=== PATIENT | male | born 1950 | race Caucasian/White ===

== ENCOUNTER 2018-06-12 22:22 | Inpatient (IN) ==
[2018-06-12] MEDS ORDERED: ASPIRIN 81 MG CHEW ONE (22:41)
[2018-06-12] MEDS: NITROGLYCERIN 2% OINTMENT 30GM TUBE ONE ×2 (22:43→22:44)
[2018-06-12] MEDS ORDERED: ASPIRIN 81 MG CHEW PO STA (22:48)
[2018-06-12] MEDS ORDERED: NITROGLYCERIN 2% OINTMENT 30GM TUBE EXT STA (22:49)
[2018-06-12] MEDS ORDERED: HEPARIN (PORCINE) 1000 UNIT/ML 10 ML (CATH LAB USE ONLY) ONE (22:56)
[2018-06-12] MEDS ORDERED: NITROGLYCERIN/D5W 100MCG/ML 20ML SYR ONE (22:56)
[2018-06-12] MEDS ORDERED: NiCARDipine HCL INJ 2.5 MG/ML 10 ML AMP ONE (22:56)
[2018-06-12] MEDS ORDERED: fentaNYL citrate 100 MCG/2 ML VIAL ONE (22:57)
[2018-06-12] MEDS ORDERED: MIDAZOLAM HCL 1 MG/ML 2ML VIAL ONE (22:57)
[2018-06-12 23:06] LABS: Basophils # (auto) 0.02 K/uL (0-0.2); Basophils % (auto) 0.2 %; Eosinophils # (auto) 0.03 K/uL (0-0.5); Eosinophils % (auto) 0.3 %; Hematocrit (blood only) 43.3 % (42-52); Hemoglobin 15.6 g/dL (14.0-18.0); Immature Granulocytes % (auto) 0.9 %; Lymphocytes # (auto) 2.99 K/uL (1.2-3.4); Lymphocytes % (auto) 26.9 %; Mean Corpuscular Volume 84.4 fL (80-100); Mean Platelet Volume 10.1 fL (7.4-10.4); Monocytes # (auto) 0.81 K/uL (0.11-0.59); Monocytes % (auto) 7.3 %; Neutrophils # (auto) 7.15 K/uL (1.4-6.5); Neutrophils % (auto) 64.4 %; Platelet Count 307 K/uL (130-400); RDW Coefficient of Variation 13.2 % (11.5-14.5); RDW Standard Deviation 40.2 fL (36.4-46.3); Red Blood Count 5.13 M/uL (4.7-6.1)
[2018-06-12] MEDS ORDERED: TICAGRELOR 90 MG TAB PO ONE (23:09)
--- NOTE | 2018-06-12 23:10 | Pre Anesthesia Assessment ---
Date of Service June 12, 2018 Pre Sedation Assessment Vital Signs Temp Pulse Pulse Resp BP BP Pulse Ox 06/12/18 23:02 104 H 18 180/113 H 96 06/12/18 22:56 97 06/12/18 22:54 103 H 20 183/115 H 96 06/12/18 22:44 37.3 C 122 H 18 214/131 H 97 Cardiovascular RRR, no murmur, no edema Respiratory normal respiratory effort, lungs clear to auscultation Pre-Sedation Airway Assessment Smoking Status: Former smoker Hx Sleep Apnea: No Hx Difficult Intubation: No Short, Thick Neck: No Thyromental Distance: > or= 3.5 Finger Breadths Oral Cavity: + WNL Mallampati Class: III Procedure Planning Contraindications for Sedation: none Current Medications Reviewed: Yes Notes The planned sedation has been discussed with the patient. Informed Consent was obtained. I have identified the patient, determined the appropriateness of sedation and have assessed the patient immediately prior to the procedure. All medicine(s) and interventions are by my order.
[2018-06-12] MEDS ORDERED: ICU PROTOCOL FOR HYPERGLYCEMIA PRN (23:13)
[2018-06-12 23:17] LABS: Albumin Level 3.8 gm/dl (3.4-5.0); BUN Creatinine Ratio 21.4 (10-20); Calcium 9.1 mg/dl (8.5-10.1); Creatinine Clr Calc Pharmacy 77.7 ml/min; Est GFR (African American) 76.4; Est GFR (Non-African American) 65.9; Potassium 3.7 mmol/L (3.5-5.1)
[2018-06-12 23:19] LABS: INR 1.1 (0.9-1.1); Partial Thromboplastin Ratio 0.9; Partial Thromboplastin Time 23.1 Seconds (21.0-31.0); Prothrombin Time 11.1 Seconds (9.0-12.0)
[2018-06-12 23:28] LABS: Bilirubin,Total 0.3 mg/dl (0.2-1); Globulin 3.7 gm/dl (2.5-4.0); Total Protein 7.5 gm/dl (6.4-8.2); Troponin I 0.919 ng/ml (0-0.045)
--- NOTE | 2018-06-13 00:14 | Post Anesthesia Assessment ---
Date of Service June 13, 2018 Post Sedation Assessment Vital Signs Temp Pulse Pulse Resp BP BP Pulse Ox 06/12/18 23:02 104 H 18 180/113 H 96 06/12/18 22:56 97 06/12/18 22:54 103 H 20 183/115 H 96 06/12/18 22:44 37.3 C 122 H 18 214/131 H 97 Recovery Score Activity: Moves 4 extremities Respiration: Deep Breath/Cough Circulation: +/-20% PreAnes Value Consciousness: Fully Awake Oxygen Saturation: O2 needed for >90% Discharge Sedation Level of Care: Fast Track Phase II Post Sedation Plan On clinical assessment, the patient appears to have tolerated the sedation without complications. Patient is recovering as anticipated. Patient will continue to be monitored by nursing and may be discharged when sedation discharge criteria are met per below protocol. Upon Completions of procedure and additional 15 minutes continue every 5 minute vital signs and the P.A.R. score; then discharge to a Phase I or Fast Track to Phase II per the following guidelines: * Discharge Patient to appropriate Phase II area if PAR is 8 or greater or return to pre- procedure baseline. The post - procedure orders will be as directed. * If PAR score is less than 8 or not return to pre-procedure baseline then patient will follow Phase I monitoring till PAR is reached for Phase II. The Phase I may be done in procedure room or may call to secure a Phase I area. * If naloxone or flumazenil are used for reversal, hold in Phase I for continued monitoring from when last reversal dose was given for a minimum of 60 minutes or longer pending the nurse and/or physician discretion of patient condition before discharge to Phase II. Please call the Sedation Physician to re-evaluate and complete post-note for discharge to Phase II area. Do NOT discharge from procedure sedation or Phase 1 until post- sedation evaluation note is complete by procedure /sedation MD Sedation Discharge Instructions to be given to the patient at discharge to home.
--- NOTE | 2018-06-13 00:14 | Cardiology Consultation ---
Date of Consultation June 12, 2018 Assessment & Plan (1) ACS (acute coronary syndrome): 2. Hypertension 3. Dyslipidemia Presentation with typical chest pain and anterior ST elevations on EKG. Now chest pain-free but in the setting of initial EKG findings recommend proceeding with emergent cardiac catheterization and likely primary PCI. No apparent contraindications to procedure. Discussed risks, benefits, alternatives of procedure with patient and they are willing to proceed. 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 Further recommendations pending findings of coronary angiography. History of Present Illness History of Present Illness Mr. Wade is a 67-year-old man here with acute chest pain and ECG concerning for acute OH. Patient seen emergently in the ED after heart alert activated upon arrival. No prior cardiac history. Cardiac risk factors include hypertension, dyslipidemia and remote tobacco use for approximately 15 years. No other real significant past medical history Chest pain began approximately 9: 45 PM around 1 hour prior to arrival while getting ready for bed. Describes substernal 5 out of 10 pain. Has been having brief similar episodes over the last several preceding days. Maybe a few brief episodes in April. Has been treated for bronchitis, possible pneumonia. Largely chest pain-free in the ED after sublingual nitroglycerin, nitro patch. Hypertensive to the 190s. EKG showed sinus rhythm with new anterior ST elevations. Family history: No family history of premature coronary artery disease. 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 Lives with . Non-smoker Allergies Allergy/AdvReac Type Severity Reaction Status Date / Time pollen extracts Allergy Intermediate ITCHY Verified 06/12/18 22:42 EYES, SNEEZING, CONGESTION Home Medications Home Medications Medication Instructions Recorded Confirmed Type aspirin [Aspir-81] 81 mg PO DAILY 06/12/18 06/12/18 History cetirizine [Zyrtec] 10 mg PO DAILY PRN 06/12/18 06/12/18 History doxycycline hyclate 100 mg PO DAILY 06/12/18 06/12/18 History hydrochlorothiazide 25 mg PO DAILY 06/12/18 06/12/18 History omega 0-vtx-ybt-fish oil [Fish Oil] 1 cap PO DAILY 06/12/18 06/12/18 History pravastatin 40 mg PO DAILY 06/12/18 06/12/18 History prednisone 10 mg PO DAILY 06/12/18 06/12/18 History Patient History Social History Smoking Status: Former smoker Review of Systems Review of Systems: Not completed in the setting of emergent situation Physical Exam Constitutional: well developed and well nourished Eyes: + anicteric sclerae Respiratory: normal respiratory effort, lungs clear to auscultation Cardiovascular: Rate/Rhythm: regular rate Heart Sounds: no murmur Extremities: no edema 2+ radial pulses bilaterally Gastrointestinal (Abdomen): normal bowel sounds, soft, nontender, no hepatosplenomegaly Skin: no rashes, warm and dry Neurologic: moves all extremities Psychiatric: A+Ox3, euthymic affect Results & Data Vital Signs (Past 12 Hours) Vital Signs Temp Pulse Pulse Resp BP BP Pulse Ox 06/12/18 23:02 104 H 18 180/113 H 96 06/12/18 22:56 97 06/12/18 22:54 103 H 20 183/115 H 96 06/12/18 22:44 37.3 C 122 H 18 214/131 H 97
--- NOTE | 2018-06-13 00:25 | Cardiac Catheterization ---
Cardiac Cath Procedure Full Procedure Date June 13, 2018 Pre-Procedure Diagnosis Pre-Procedure Diagnosis: STEMI AUC Score AUC Score: 9 Post-Procedure Diagnosis Post-Procedure Diagnosis: Severe CAD and Normal Intracardiac Pressures Procedure(s) Performed Procedure(s) Performed: Coronary Angiography, Left Heart Cath and Drug Eluting Stent Second Watch Sergeant Gomez Bahena MD Clearance Coordinator(s) Isauro Estimated Blood Loss Estimated Blood Loss: 15 Medication(s) Medication(s): Fentanyl, Heparin, Lidocaine 1%, Nicardipine, Nitroglycerin and Versed Medication(s): Ticagrelor Summary of Findings Indication: STEMI/Heart Alert Access: 6 Fr right radial artery Catheters: Diagnostic JR4, EBU 3.5 guide Findings: LM -large caliber vessel, no significant disease LAD -large caliber vessel, mild diffuse disease, 90+% hazy focal mid segment disease after takeoff of second diagonal, 30% diffuse latemid to distal disease, large caliber vessel as wraps around apex with CRISTIANA II-III flow. Gives off 3 moderate caliber diagonals with mild disease. Circumflex -50 to 60% ostial stenosis, mid segment luminal irregularities, large OM 2 without significant disease. RCA -dominant, moderate caliber vessel, 50% proximal disease, mild earlymid segment disease, distal luminal irregularities, tortuous PDA without significant disease. LVEDP -1 -- PCI -- Antithrombotic therapy: Heparin, ticagrelor Procedure: Left main cannulated with EBU 3.5 guide BMW wire passed across lesion into distal vessel Mid LAD lesion predilated with 2.5 compliant balloon Dilated lesion stented with 3.0 x 18 mm Al drug-eluting stent Stent post-dilated with 3.5 noncompliant balloon IC vasodilators administered for spasm Post procedure CRISTIANA 3 flow, stent well expanded with minimal residual stenosis and no apparent cardiac complications. Arterial Closure: TR band Summary: 1. Anterior STEMI/90+% acute mid LAD stenosis 2. Moderate to severe 2-vessel non-culprit coronary artery disease -50 to 60% ostial circumflex 50% proximal RCA 3. Normal intracardiac filling pressure 4. Successful PCI of mid LAD with single drug-eluting stent (3.0 x 18 mm Al; postdilated with 3.5 NC). Recommendations: Admit to ICU for continued monitoring Loaded with ticagrelor 180 mg in photonic laboratory technician Continue dual-antiplatelet therapy for at least 1 year. Trend troponins until peak, Check Echo Uptitrate beta-torrey/LEXI as BP allows High-dose statin Consult cardiac Rehab Medically manage non-culprit coronary artery disease. Will consider further ischemic assessment as an outpatient. Hemodynamics Rest Ao:: 115/81/97 Final Ao: 118/72/94 LV: 119/1 Recommendations Recommendations: PCI without planned CABG Specimens Specimens: None Radiation Exposure (mGy) 2436 Contrast (mls) 120 Fluids (cc crystalloids) Fluids (cc crystalloids): 68 Drains Drains: None Anesthesia Moderate Procedural Complication(s) None Disposition ICU ACC Data: Improvement Leader Cardiac Status Clinical evaluation leading to the procedure CAD Presenation: STEMI Anginal Classification: CCS IV Heart Failure: No Cardiogenic Shock within 24 Hours: No Cardiac Arrest within 24 Hours: No Imaging Studies Past 6 Months: No Stress Studies Past 6 Months: No Diagnostic Physicians Name: Gomez Bahena MD Status: Emergency Closure Device Percutaneous Entry Location: Radial Closure Device: Radial Band Recommendations: PCI without planned CABG PCI Indication: Immediate PCI for STEMI Lesion Segment Name: Mid LAD Culprit Artery: Yes Stenosis Prior to Rx (%): 90+% Chronic Total Occlusion: No IVUS: No FFR: No Pre-Procedure CRISTIANA Flow: 2 Previously Treated Lesion: No Lesion Complexity: Non-High/Non-C Lesion Length (mm): 12 Thrombus Present: Yes Bifurcation Lesion: No Guidewire Across Lesion: Stenosis Post-Procedure (%): 0 Post-Procedure CRISTIANA Flow: 3 Devices(s) Deployed: Yes Yes Intraprocedure Events Significant Disection: No Perforation: No
[2018-06-13] MEDS ORDERED: ACETAMINOPHEN 325 MG TAB PO PRN (00:30)
[2018-06-13] MEDS ORDERED: ONDANSETRON INJ 2 MG/ML 2 ML VIAL IV PRN (00:30)
[2018-06-13] MEDS ORDERED: SODIUM CHLORIDE 0.9% 1000ML 1,000 ML IV SCH (00:30)
--- NOTE | 2018-06-13 01:45 | Emergency Department Note ---
Entered by Nena Capps acting as a scribe for History of Present Illness General Chief complaint: Chest Pain Stated complaint: CHEST PAIN Time Seen by Provider: 06/12/18 22:49 Source: patient History of Present Illness Onset (ago): hour(s) 1 Location: chest Radiation: extremity (left) and other (shoulders) Pain Consistency: + other (persistent) Associated symptoms: + other (negative swelling in the legs ); no shortness of breath The patient is a 67 year old male who presents to the Emergency Room with complaints of persistent chest pain that began 1 hour to arrival. The patient states that his pain radiates into his shoulders and down the left arm. The patient states that he had intermittent chest pain over the past 5 days, but states that he recently had bronchitis and pneumonia, and states that he believed his chest pain was from persistent coughing. The patient denies shortness of breath and swelling in his legs. He states that he takes a low dose aspirin daily. The patient states that he is also taking doxycycline and prednisone for his bronchitis and pneumonia. The patient denies heart history, but states that his mother from a heart issue. Home Medications Home Medications Medication Instructions Recorded Confirmed Type aspirin [Aspir-81] 81 mg PO DAILY 06/12/18 06/12/18 History cetirizine [Zyrtec] 10 mg PO DAILY PRN 06/12/18 06/12/18 History doxycycline hyclate 100 mg PO DAILY 06/12/18 06/12/18 History omega [id number]-fish oil [Fish Oil] 1 cap PO DAILY 06/12/18 06/12/18 History atorvastatin 80 mg PO QAM #30 tab 06/14/18 Rx lisinopril [Zestril] 5 mg PO QAM #30 tab 06/14/18 Rx metoprolol tartrate 25 mg PO BID #60 tab 06/14/18 Rx ticagrelor [Brilinta] 90 mg PO BID #60 tab 06/14/18 Rx Allergies Allergy/AdvReac Type Severity Reaction Status Date / Time pollen extracts Allergy Intermediate ITCHY Verified 06/12/18 22:42 EYES, SNEEZING, CONGESTION Past Med/Surg History Medical History No significant past medical history Social History Preferred Language: Maori Communication Ability: Effective Marketing Co Op Required: No Beliefs That Will Affect Care: None Current Living Situation: Alone Other Information That Helps Us Care for You: No Feels Safe at Home: Yes Safety Concerns: Feels Safe At This Time Smoking Status: Former smoker Do You Dip or Chew Tobacco: No Second Hand Exposure: No Tobacco Cessation Education Requested by Patient: No Hx Alcohol Use: No Hx Substance Use: No Review of Systems See HPI for pertinent positives & negatives. and A total of 10 systems reviewed and were otherwise negative Physical Exam Vital Signs Vital Signs - 24 hr 06/12/18 22:44 06/12/18 22:54 06/12/18 22:56 Temperature 37.3 C Temperature Source Oral Sepsis Recent Fever Within 48 Hours No Sepsis Action Taken by Nursing No Action Required Pulse Rate 122 H Pulse Rate [Apical] Pulse Rate [Finger] 103 H Respiratory Rate 18 20 Respiratory Effort / Characteristics Non-Labored Spontaneous Non-Labored Spontaneous Respiratory Depth Normal Normal Respiratory Pattern Regular Blood Pressure 214/131 H Blood Pressure [Left Arm] Blood Pressure [Right Arm] 183/115 H Blood Pressure Mean 158 Blood Pressure Mean [Left Arm] Blood Pressure Mean [Right Arm] 137 Blood Pressure Position Lying Pulse Oximetry 97 96 97 Oxygen Delivery Method Room Air Room Air Room Air 06/12/18 23:02 06/13/18 00:20 06/13/18 00:30 Temperature 36.9 C 36.9 C Temperature Source Oral Oral Sepsis Recent Fever Within 48 Hours Sepsis Action Taken by Nursing Pulse Rate Pulse Rate [Apical] 77 84 Pulse Rate [Finger] 104 H Respiratory Rate 18 18 18 Respiratory Effort / Characteristics Non-Labored Spontaneous Respiratory Depth Normal Respiratory Pattern Blood Pressure Blood Pressure [Left Arm] 126/85 149/92 H Blood Pressure [Right Arm] 180/113 H 126/85 Blood Pressure Mean Blood Pressure Mean [Left Arm] 98 111 Blood Pressure Mean [Right Arm] 135 98 Blood Pressure Position Pulse Oximetry 96 96 97 Oxygen Delivery Method Room Air Room Air Room Air 06/13/18 00:45 06/13/18 01:00 06/13/18 01:15 Temperature Temperature Source Sepsis Recent Fever Within 48 Hours Sepsis Action Taken by Nursing Pulse Rate 79 Pulse Rate [Apical] 78 86 80 Pulse Rate [Finger] Respiratory Rate 17 19 16 Respiratory Effort / Characteristics Respiratory Depth Respiratory Pattern Blood Pressure Blood Pressure [Left Arm] 150/90 H 153/97 H 142/99 H Blood Pressure [Right Arm] Blood Pressure Mean Blood Pressure Mean [Left Arm] 110 115 113 Blood Pressure Mean [Right Arm] Blood Pressure Position Pulse Oximetry 94 95 97 Oxygen Delivery Method Room Air Room Air Room Air 06/13/18 01:30 06/13/18 01:45 06/13/18 02:00 Temperature Temperature Source Sepsis Recent Fever Within 48 Hours Sepsis Action Taken by Nursing Pulse Rate Pulse Rate [Apical] 73 75 72 Pulse Rate [Finger] Respiratory Rate 16 16 15 Respiratory Effort / Characteristics Respiratory Depth Respiratory Pattern Blood Pressure Blood Pressure [Left Arm] 125/91 135/83 127/82 Blood Pressure [Right Arm] Blood Pressure Mean Blood Pressure Mean [Left Arm] 102 100 97 Blood Pressure Mean [Right Arm] Blood Pressure Position Pulse Oximetry 97 96 94 Oxygen Delivery Method Room Air Room Air Room Air Vital signs reviewed. General: Well-appearing male. HEENT: No scleral icterus, PERRLA, neck supple. Atraumatic. Cardiovascular: Tachycardic rate and rhythm, no extra sounds. Hypertensive. Pulmonary: Clear to auscultation bilaterally, normal work of breathing. Abdomen: Soft, nontender, nondistended, positive bowel sounds. Musculoskeletal: Atraumatic, no peripheral edema. Neurologic: Patient awake alert and oriented x 3. Skin: Warm, dry, no rash Course 2233: The patient was evaluated in room A1, and a complete history and physical examination were performed. 2258: Dr. Bahena-Cardiology is at the bedside. 2309: The patient was sent to the catheterization lab. Administered Medications Discontinued Medications Al Hydrox/Mg Hydrox/Simethicone (Maalox Max) 30 ml PO Q6H PRN PRN Reason: Heartburn Stop: 07/13/18 06:19 Last Admin: 06/13/18 06:35 Dose: 30 ml Documented by: [id number] Aspirin (Aspirin Chew) Confirm Administered Dose 243 mg .ROUTE .STK-MED ONE Stop: 06/12/18 22:42 Last Admin: 06/12/18 22:44 Dose: 243 mg Documented by: [id number] Aspirin (Aspirin Chew) 243 mg PO NOW STA Stop: 06/12/18 22:49 Last Admin: 06/12/18 22:52 Dose: Not Given Documented by: [id number] Aspirin (Ecotrin Ectab) [facility] [place] 07/13/18 08:59 Last Admin: 06/14/18 07:59 Dose: 81 mg Documented by: [id number] Admin: 06/13/18 08:39 Dose: 81 mg Documented by: [id number] Atorvastatin Calcium (Lipitor) 80 mg PO QAM [facility] Stop: 07/13/18 08:59 Last Admin: 06/14/18 07:59 Dose: 80 mg Documented by: [id number] Admin: 06/13/18 08:38 Dose: 80 mg Documented by: [id number] Doxycycline Hyclate (Vibramycin) 100 mg PO DAILY MANDY Stop: 07/13/18 08:59 Last Admin: 06/13/18 09:35 Dose: 100 mg Documented by: [id number] Fentanyl Citrate (Fentanyl Citrate) Confirm Administered Dose 100 mcg .ROUTE .STK-MED ONE Stop: 06/12/18 22:58 Last Admin: 06/13/18 00:38 Dose: Not Given Documented by: [id number] Fish Oil (Buford-3 (Purified Fish Oil)) 1 gm PO DAILY MANDY Stop: 07/14/18 08:59 Last Admin: 06/14/18 07:59 Dose: 1 gm Documented by: [id number] Heparin Sodium (Porcine) (Heparin Iv Bolus (Senior H[employer] Developer Use Only)) Confirm Administered Dose 10,000 units .ROUTE .STK-MED ONE Stop: 06/12/18 22:57 Last Admin: 06/13/18 00:38 Dose: Not Given Documented by: [id number] Sodium Chloride (Nss 1000ml) 1,000 mls @ 100 mls/hr IV .Q10H MANDY Stop: 06/13/18 05:29 Last Infusion: 06/13/18 06:34 Dose: 0 mls/hr Documented by: [id number] Admin: 06/13/18 01:34 Dose: 100 mls/hr Documented by: [id number] Ceftriaxone Sodium 2,000 mg/ (Dextrose) 70 mls @ 140 mls/hr IV NOW STA Stop: 06/13/18 11:29 Last Infusion: 06/13/18 12:08 Dose: 0 mls/hr Documented by: [id number] Admin: 06/13/18 11:25 Dose: 140 mls/hr Documented by: [id number] Lisinopril (Zestril) 5 mg PO QAM [facility] Stop: 07/13/18 08:59 Last Admin: 06/14/18 08:00 Dose: 5 mg Documented by: [id number] Admin: 06/13/18 08:39 Dose: 5 mg Documented by: [id number] Metoprolol Tartrate (Lopressor) 25 mg PO BID MANDY Stop: 07/13/18 08:59 Last Admin: 06/14/18 07:59 Dose: 25 mg Documented by: [id number] Admin: 06/13/18 20:28 Dose: 25 mg Documented by: [id number] Admin: 06/13/18 08:38 Dose: 25 mg Documented by: [id number] Midazolam HCl (Versed) Confirm Administered Dose 2 mg .ROUTE .STK-MED ONE Stop: 06/12/18 22:58 Last Admin: 06/13/18 00:38 Dose: Not Given Documented by: [id number] Nicardipine HCl (Cardene) Confirm Administered Dose 25 mg .ROUTE .STK-MED ONE Stop: 06/12/18 22:57 Last Admin: 06/13/18 00:37 Dose: Not Given Documented by: [id number] Nitroglycerin (Nitro-Bid 2%) Confirm Administered Dose 18 inch .ROUTE .STK-MED ONE Stop: 06/12/18 22:42 Last Admin: 06/12/18 22:44 Dose: 1 inch Documented by: [id number] Nitroglycerin (Nitro-Bid 2%) 1 inch EXT NOW STA Stop: 06/12/18 22:50 Last Admin: 06/12/18 22:52 Dose: Not Given Documented by: [id number] Nitroglycerin/Dextrose (Nitroglycerin/D5w 100 Mcg/Ml 20ml Syringe) Confirm Administered Dose 2,000 mcg .ROUTE .STK-MED ONE Stop: 06/12/18 22:57 Last Admin: 06/13/18 00:38 Dose: Not Given Documented by: [id number] Sodium Chloride ([place] Nasal) Confirm Administered Dose 225 sprays .ROUTE .STK- MED ONE Stop: 06/14/18 01:02 Last Admin: 06/14/18 02:06 Dose: Not Given Documented by: [id number] Sodium Chloride ([place] Nasal) 1 sprays NA PRN PRN PRN Reason: Dryness Stop: 07/14/18 01:15 Last Admin: 06/14/18 01:05 Dose: 1 sprays Documented by: [id number] Ticagrelor (Brilinta) Confirm Administered Dose 180 mg PO .STK-MED ONE Stop: 06/12/18 23:10 Last Admin: 06/13/18 00:38 Dose: Not Given Documented by: [id number] Ticagrelor (Brilinta) 90 mg PO BID MANDY Stop: 07/13/18 20:59 Last Admin: 06/14/18 07:59 Dose: 90 mg Documented by: [id number] Admin: 06/13/18 20:28 Dose: 90 mg Documented by: [id number] Medical Decision Making Differential Diagnosis Differential diagnosis: Etiologies such as cardiac ischemia, aortic dissection, pulmonary embolism, pneumonia, pneumothorax, musculoskeletal, infections, pericarditis, myocarditis, esophageal rupture, gastrointestinal, as well as others were entertained. Medical Records Attestation: I reviewed the patient's medical records. Home Medications Current Medication List: was personally reviewed by me Laboratory Data Attestation: I reviewed the patient's lab results. Result diagrams: 06/14/18 06:24 06/14/18 06:24 Lab Results 06/12/18 06/12/18 06/12/18 Range/Units 22:35 22:35 22:35 WBC 11.10 H (4.8-10.8) K/uL RBC 5.13 (4.7-6.1) M/uL Hgb 15.6 (14.0-18.0) g/dL Hct 43.3 (42-52) % MCV 84.4 (80-100) fL MCH 30.4 (25-34) pg MCHC 36.0 (32-36) g/dL RDW Std Deviation 40.2 (36.4-46.3) fL RDW Coeff of Augusto 13.2 (11.5-14.5) % Plt Count 307 (130-400) K/uL MPV 10.1 (7.4-10.4) fL Immature Gran % (Auto) 0.9 % Neut % (Auto) 64.4 % Lymph % (Auto) 26.9 % Tw[place]gs % (Auto) 7.3 % Eos % (Auto) 0.3 % Baso % (Auto) 0.2 % Immature Gran # (Auto) 0.10 H (0.00-0.02) K/uL Neut # (Auto) 7.15 H (1.4-6.5) K/uL Lymph # (Auto) 2.99 (1.2-3.4) K/uL Tw[place]gs # (Auto) 0.81 H (0.11-0.59) K/uL Eos # (Auto) 0.03 (0-0.5) K/uL Baso # (Auto) 0.02 (0-0.2) K/uL PT 11.1 (9.0-12.0) Seconds INR 1.1 (0.9-1.1) APTT 23.1 (21.0-31.0) Seconds PTT Ratio 0.9 Activ Coag Time Kaolin (94-140) SECONDS Sodium 136 (136-145) mmol/L Potassium 3.7 (3.5-5.1) mmol/L Chloride 102 (98-107) mmol/L Carbon Dioxide 26 (21-32) mmol/L Anion Gap 8.0 (3-11) BUN 25 H (7-18) mg/dl Creatinine 1.15 (0.6-1.4) mg/dl Est Cr Clr Drug Dosing 77.7 ml/min Est GFR ( Amer) 76.4 Est GFR (Non-Af Amer) 65.9 BUN/Creatinine Ratio 21.4 H (10-20) Glucose 230 H (70-99) mg/dl POC Glucose (70-99) Estimat Average Glucose mg/dl Hemoglobin A1c (4.5-5.6) % Calcium 9.1 (8.5-10.1) mg/dl Total Bilirubin 0.3 (0.2-1) mg/dl AST 43 H (15-37) U/L ALT 45 (12-78) U/L Alkaline Phosphatase 95 (45-117) U/L POC Troponin I (0-0.045) ng/ml Troponin I 0.919 H* (0-0.045) ng/ml Total Protein 7.5 (6.4-8.2) gm/dl Albumin 3.8 (3.4-5.0) gm/dl Globulin 3.7 (2.5-4.0) gm/dl Albumin/Globulin Ratio 1.0 (0.9-2) Triglycerides (0-150) mg/dl Cholesterol (0-200) mg/dl LDL Cholesterol, Calc mg/dl VLDL Cholesterol, Calc mg/dl HDL Cholesterol mg/dl Cholesterol/HDL Ratio Lipase 123 (73-393) U/L Nasal Screen MRSA (PCR) (Negative) Hepatitis C Ab Screen (Neg) 06/12/18 06/12/18 06/13/18 Range/Units 22:40 22:43 00:24 WBC (4.8-10.8) K/uL RBC (4.7-6.1) M/uL Hgb (14.0-18.0) g/dL Hct (42-52) % MCV (80-100) fL MCH (25-34) pg MCHC (32-36) g/dL RDW Std Deviation (36.4-46.3) fL RDW Coeff of Augusto (11.5-14.5) % Plt Count (130-400) K/uL MPV (7.4-10.4) fL Immature Gran % (Auto) % Neut % (Auto) % Lymph % (Auto) % Twiggs % (Auto) % Eos % (Auto) % Baso % (Auto) % Immature Gran # (Auto) (0.00-0.02) K/uL Neut # (Auto) (1.4-6.5) K/uL Lymph # (Auto) (1.2-3.4) K/uL Tw[place]gs # (Auto) (0.11-0.59) K/uL Eos # (Auto) (0-0.5) K/uL Baso # (Auto) (0-0.2) K/uL PT (9.0-12.0) Seconds INR (0.9-1.1) APTT (21.0-31.0) Seconds PTT Ratio Activ Coag Time Kaolin 213 H (94-140) SECONDS Sodium (136-145) mmol/L Potassium (3.5-5.1) mmol/L Chloride (98-107) mmol/L Carbon Dioxide (21-32) mmol/L Anion Gap (3-11) BUN (7-18) mg/dl Creatinine (0.6-1.4) mg/dl Est Cr Clr Drug Dosing ml/min Est GFR ( Amer) Est GFR (Non-Af Amer) BUN/Creatinine Ratio (10-20) Glucose (70-99) mg/dl POC Glucose (70-99) Estimat Average Glucose mg/dl Hemoglobin A1c (4.5-5.6) % Calcium (8.5-10.1) mg/dl Total Bilirubin (0.2-1) mg/dl AST (15-37) U/L ALT (12-78) U/L Alkaline Phosphatase (45-117) U/L POC Troponin I 0.47 H (0-0.045) ng/ml Troponin I (0-0.045) ng/ml Total Protein (6.4-8.2) gm/dl Albumin (3.4-5.0) gm/dl Globulin (2.5-4.0) gm/dl Albumin/Globulin Ratio (0.9-2) Triglycerides (0-150) mg/dl Cholesterol (0-200) mg/dl LDL Cholesterol, Calc mg/dl VLDL Cholesterol, Calc mg/dl HDL Cholesterol mg/dl Cholesterol/HDL Ratio Lipase (73-393) U/L Nasal Screen MRSA (PCR) Negative (Negative) Hepatitis C Ab Screen (Neg) 06/13/18 06/13/18 06/13/18 Range/Units 05:57 06:00 06:00 WBC 12.92 H (4.8-10.8) K/uL RBC 4.63 L (4.7-6.1) M/uL Hgb 14.0 (14.0-18.0) g/dL Hct 38.8 L (42-52) % MCV 83.8 (80-100) fL MCH 30.2 (25-34) pg MCHC 36.1 H (32-36) g/dL RDW Std Deviation 40.1 (36.4-46.3) fL RDW Coeff of Augusto 13.4 (11.5-14.5) % Plt Count 262 (130-400) K/uL MPV 9.8 (7.4-10.4) fL Immature Gran % (Auto) 0.9 % Neut % (Auto) 61.4 % Lymph % (Auto) 25.8 % Twiggs % (Auto) 10.6 % Eos % (Auto) 1.1 % Baso % (Auto) 0.2 % Immature Gran # (Auto) 0.11 H (0.00-0.02) K/uL Neut # (Auto) 7.95 H (1.4-6.5) K/uL Lymph # (Auto) 3.33 (1.2-3.4) K/uL Tw[place]gs # (Auto) 1.37 H (0.11-0.59) K/uL Eos # (Auto) 0.14 (0-0.5) K/uL Baso # (Auto) 0.02 (0-0.2) K/uL PT (9.0-12.0) Seconds INR (0.9-1.1) APTT (21.0-31.0) Seconds PTT Ratio Activ Coag Time Kaolin (94-140) SECONDS Sodium (136-145) mmol/L Potassium (3.5-5.1) mmol/L Chloride (98-107) mmol/L Carbon Dioxide (21-32) mmol/L Anion Gap (3-11) BUN (7-18) mg/dl Creatinine (0.6-1.4) mg/dl Est Cr Clr Drug Dosing ml/min Est GFR ( Amer) Est GFR (Non-Af Amer) BUN/Creatinine Ratio (10-20) Glucose (70-99) mg/dl POC Glucose (70-99) Estimat Average Glucose 143 mg/dl Hemoglobin A1c 6.6 H (4.5-5.6) % Calcium (8.5-10.1) mg/dl Total Bilirubin (0.2-1) mg/dl AST (15-37) U/L ALT (12-78) U/L Alkaline Phosphatase (45-117) U/L POC Troponin I (0-0.045) ng/ml Troponin I 97.900 H* (0-0.045) ng/ml Total Protein (6.4-8.2) gm/dl Albumin (3.4-5.0) gm/dl Globulin (2.5-4.0) gm/dl Albumin/Globulin Ratio (0.9-2) Triglycerides 301 H (0-150) mg/dl Cholesterol 145 (0-200) mg/dl LDL Cholesterol, Calc 48 mg/dl VLDL Cholesterol, Calc 60 mg/dl HDL Cholesterol 37 mg/dl Cholesterol/HDL Ratio 4 Lipase (73-393) U/L Nasal Screen MRSA (PCR) (Negative) Hepatitis C Ab Screen (Neg) 06/13/18 06/13/18 06/13/18 Range/Units 06:00 06:14 12:17 WBC (4.8-10.8) K/uL RBC (4.7-6.1) M/uL Hgb (14.0-18.0) g/dL Hct (42-52) % MCV (80-100) fL MCH (25-34) pg MCHC (32-36) g/dL RDW Std Deviation (36.4-46.3) fL RDW Coeff of Augusto (11.5-14.5) % Plt Count (130-400) K/uL MPV (7.4-10.4) fL Immature Gran % (Auto) % Neut % (Auto) % Lymph % (Auto) % [place] % (Auto) % Eos % (Auto) % Baso % (Auto) % Immature Gran # (Auto) (0.00-0.02) K/uL Neut # (Auto) (1.4-6.5) K/uL Lymph # (Auto) (1.2-3.4) K/uL Tw[place]gs # (Auto) (0.11-0.59) K/uL Eos # (Auto) (0-0.5) K/uL Baso # (Auto) (0-0.2) K/uL PT (9.0-12.0) Seconds INR (0.9-1.1) APTT (21.0-31.0) Seconds PTT Ratio Activ Coag Time Kaolin (94-140) SECONDS Sodium (136-145) mmol/L Potassium (3.5-5.1) mmol/L Chloride (98-107) mmol/L Carbon Dioxide (21-32) mmol/L Anion Gap (3-11) BUN (7-18) mg/dl Creatinine (0.6-1.4) mg/dl Est Cr Clr Drug Dosing ml/min Est GFR ( Amer) Est GFR (Non-Af Amer) BUN/Creatinine Ratio (10-20) Glucose (70-99) mg/dl POC Glucose 114 H (70-99) Estimat Average Glucose mg/dl Hemoglobin A1c (4.5-5.6) % Calcium (8.5-10.1) mg/dl Total Bilirubin (0.2-1) mg/dl AST (15-37) U/L ALT (12-78) U/L Alkaline Phosphatase (45-117) U/L POC Troponin I (0-0.045) ng/ml Troponin I 64.300 H* (0-0.045) ng/ml Total Protein (6.4-8.2) gm/dl Albumin (3.4-5.0) gm/dl Globulin (2.5-4.0) gm/dl Albumin/Globulin Ratio (0.9-2) Triglycerides (0-150) mg/dl Cholesterol (0-200) mg/dl LDL Cholesterol, Calc mg/dl VLDL Cholesterol, Calc mg/dl HDL Cholesterol mg/dl Cholesterol/HDL Ratio Lipase (73-393) U/L Nasal Screen MRSA (PCR) (Negative) Hepatitis C Ab Screen Neg (Neg) 06/13/18 06/13/18 06/14/18 Range/Units 15:56 21:45 06:24 WBC 10.14 (4.8-10.8) K/uL RBC 4.83 (4.7-6.1) M/uL Hgb 14.5 (14.0-18.0) g/dL Hct 41.3 L (42-52) % MCV 85.5 (80-100) fL MCH 30.0 (25-34) pg MCHC 35.1 (32-36) g/dL RDW Std Deviation 42.3 (36.4-46.3) fL RDW Coeff of Augusto 13.7 (11.5-14.5) % Plt Count 248 (130-400) K/uL MPV 9.9 (7.4-10.4) fL Immature Gran % (Auto) % Neut % (Auto) % Lymph % (Auto) % [place]gs % (Auto) % Eos % (Auto) % Baso % (Auto) % Immature Gran # (Auto) (0.00-0.02) K/uL Neut # (Auto) (1.4-6.5) K/uL Lymph # (Auto) (1.2-3.4) K/uL [place]gs # (Auto) (0.11-0.59) K/uL Eos # (Auto) (0-0.5) K/uL Baso # (Auto) (0-0.2) K/uL PT (9.0-12.0) Seconds INR (0.9-1.1) APTT (21.0-31.0) Seconds PTT Ratio Activ Coag Time Kaolin (94-140) SECONDS Sodium (136-145) mmol/L Potassium (3.5-5.1) mmol/L Chloride (98-107) mmol/L Carbon Dioxide (21-32) mmol/L Anion Gap (3-11) BUN (7-18) mg/dl Creatinine (0.6-1.4) mg/dl Est Cr Clr Drug Dosing ml/min Est GFR ( Amer) Est GFR (Non-Af Amer) BUN/Creatinine Ratio (10-20) Glucose (70-99) mg/dl POC Glucose (70-99) Estimat Average Glucose mg/dl Hemoglobin A1c (4.5-5.6) % Calcium (8.5-10.1) mg/dl Total Bilirubin (0.2-1) mg/dl AST (15-37) U/L ALT (12-78) U/L Alkaline Phosphatase (45-117) U/L POC Troponin I (0-0.045) ng/ml Troponin I 49.600 H* 36.000 H* (0-0.045) ng/ml Total Protein (6.4-8.2) gm/dl Albumin (3.4-5.0) gm/dl Globulin (2.5-4.0) gm/dl Albumin/Globulin Ratio (0.9-2) Triglycerides (0-150) mg/dl Cholesterol (0-200) mg/dl LDL Cholesterol, Calc mg/dl VLDL Cholesterol, Calc mg/dl HDL Cholesterol mg/dl Cholesterol/HDL Ratio Lipase (73-393) U/L Nasal Screen MRSA (PCR) (Negative) Hepatitis C Ab Screen (Neg) 06/14/18 Range/Units 06:24 WBC (4.8-10.8) K/uL RBC (4.7-6.1) M/uL Hgb (14.0-18.0) g/dL Hct (42-52) % MCV (80-100) fL MCH (25-34) pg MCHC (32-36) g/dL RDW Std Deviation (36.4-46.3) fL RDW Coeff of Augusto (11.5-14.5) % Plt Count (130-400) K/uL MPV (7.4-10.4) fL Immature Gran % (Auto) % Neut % (Auto) % Lymph % (Auto) % [place] % (Auto) % Eos % (Auto) % Baso % (Auto) % Immature Gran # (Auto) (0.00-0.02) K/uL Neut # (Auto) (1.4-6.5) K/uL Lymph # (Auto) (1.2-3.4) K/uL [place]gs # (Auto) (0.11-0.59) K/uL Eos # (Auto) (0-0.5) K/uL Baso # (Auto) (0-0.2) K/uL PT (9.0-12.0) Seconds INR (0.9-1.1) APTT (21.0-31.0) Seconds PTT Ratio Activ Coag Time Kaolin (94-140) SECONDS Sodium 138 (136-145) mmol/L Potassium 4.1 (3.5-5.1) mmol/L Chloride 108 H (98-107) mmol/L Carbon Dioxide 25 (21-32) mmol/L Anion Gap 5.0 (3-11) BUN 18 (7-18) mg/dl Creatinine 0.82 D (0.6-1.4) mg/dl Est Cr Clr Drug Dosing 100.1 ml/min Est GFR ( Amer) 106.8 Est GFR (Non-Af Amer) 92.1 BUN/Creatinine Ratio 21.9 H (10-20) Glucose 99 (70-99) mg/dl POC Glucose (70-99) Estimat Average Glucose mg/dl Hemoglobin A1c (4.5-5.6) % Calcium 8.7 (8.5-10.1) mg/dl Total Bilirubin (0.2-1) mg/dl AST (15-37) U/L ALT (12-78) U/L Alkaline Phosphatase (45-117) U/L POC Troponin I (0-0.045) ng/ml Troponin I (0-0.045) ng/ml Total Protein (6.4-8.2) gm/dl Albumin (3.4-5.0) gm/dl Globulin (2.5-4.0) gm/dl Albumin/Globulin Ratio (0.9-2) Triglycerides (0-150) mg/dl Cholesterol (0-200) mg/dl LDL Cholesterol, Calc mg/dl VLDL Cholesterol, Calc mg/dl HDL Cholesterol mg/dl Cholesterol/HDL Ratio Lipase (73-393) U/L Nasal Screen MRSA (PCR) (Negative) Hepatitis C Ab Screen (Neg) Imaging Data Attestation: I personally reviewed and interpreted this imaging study as follows: My Impression: CHEST X-RAY: Pulmonary vascular congestion. Normal mediastinum. No pleural effusion. ECG Data Attestation: I personally reviewed and interpreted this ECG as follows: Indication: chest pain Rate (beats per minute): 95 Rhythm: normal sinus Findings: + other (left atrial enlargement; low voltage QRS) and + ST elevation (Anterior); no ectopy Additional Comments: Repeat: Sinus tachycardia with a rate of 106. Worsening ST elevation in the anterior leads. No ectopy. QTC 438. STEMI. Blood Pressure Blood Pressure Findings: Normal blood pressure MDM Narrative This patient was evaluated and appeared to be in no significant distress. IV access was obtained and laboratory work was drawn. The patient was placed on the commutator operator and found to be in a normal sinus rhythm. EKG was performed and reveals ST elevation in the anterior leads. A heart alert was called. Patient is noted to be hypertensive and slightly tachycardic. Nitroglycerin paste was applied. He was given aspirin 243 mg to chew as he had taken 1 baby aspirin earlier. Patient's symptoms seem to improve although on repeat EKG the ST elevation seem to progress. Dr. Bahena of interventional cardiology arrived at the patient's bedside. After and examined discussion, patient was taken to the catheterization lab for further management. He and his family expressed understanding of the plan and agreed. Impression & Plan ST elevation myocardial infarction (STEMI) Critical Care Time I have personally spent greater than 30 minutes of critical care time in the direct management of this patient. This includes bedside care, interpretation of diagnostic studies, and testing, discussion with consultants, patient, and family members, and other required patient management activities. This 30 minutes is in excess of all separately billable procedures. Critical Care Time: Yes Discharge Plan Visit Data *Final* Discharge Date/Time: 06/12/18 23:10 Chief Complaint: Chest Pain Stated Complaint: CHEST PAIN ED Provider: Oneyda Zheng Discharge Problem: ST elevation myocardial infarction (STEMI) Patient Disposition: Admitted As Inpatient Condition: Good Discharge Instructions Interventions: ED Discharge Assessment Last Done: 06/12/18 23:10 Discharge Problem: ST elevation myocardial infarction (STEMI) Qualifiers: Involved coronary artery: LAD coronary artery Qualified Code(s): I21.02 - ST elevation (STEMI) myocardial infarction involving left anterior descending coronary artery The scribe's documentation has been prepared under my direction and personally reviewed by me in its entirety. I confirm that the note above accurately reflects all work, treatment, procedures, and medical decision making performed by me.
--- NOTE | 2018-06-13 02:29 | History and Physical Report ---
DATE OF ADMISSION: 06/12/2018 CHIEF COMPLAINT: Chest pain. HISTORY OF PRESENT ILLNESS: This is a 67-year-old male with past medical history significant for prediabetes, hyperlipidemia, hypertension, allergic rhinitis, who presents with chest pain and found to have ST elevated DC in the anterior leads, status post emergent cardiac catheterization and stent to the mid LAD. Currently, the patient is pain free. The patient, by the time that he came to the ER, was pain free, but because of EKG changes he had a cardiac catheterization. Currently resting comfortably and hemodynamically stable. The patient states in April, he had an episode of bronchitis and treated with antibiotics and steroids and says about 1 week ago again he was having cough, cold-like symptoms, saw his family doctor and was prescribed doxy and prednisone,.. He was given 10-day course of doxy. But since last 1 week, he is getting on and off pressure feeling in the sternum that lasts only a few seconds, but today he worked in his yard and came home and he did okay at that time, but when he was getting ready to sleep, he noticed again retrosternal chest pain 5/10 in severity, pressure-like feeling, some tingliness in the left arm. He thought it is heartburn and took couple of glasses of water, but that did not help, then at that time he got concerned. He took a dose of aspirin and called his son and he was brought to the ER. By the time they reached the ER, his pain subsided, but because of ST elevation in the EKG in the anterior leads, his cardiac cath was done. During the episode, he did not have any shortness of breath or sweating or dizziness. Denies any headache. No blurred visions. No nausea, no abdominal pain. Normal bowel and bladder movements. No hematuria, no burning micturition, no melena or blood in the stools. No swelling in the legs. No rash. Currently resting comfortably and hemodynamically stable. His recent x-ray done on 06/06/2018 showed possible pneumonia in the left lower lobe, for which he is on doxycycline and is supposed to get repeat x-ray in 1 month. ALLERGIES: No known drug allergies. PAST MEDICAL HISTORY: As mentioned above. PAST SURGICAL HISTORY: Colonoscopy, reduction of hemorrhoids, nasal surgery, right rotator cuff surgery, right toe surgery, impacted tooth removal in his late 20s. MEDICATIONS: The patient is on doxycycline 100 mg p.o. b.i.d., prednisone tapering dose, hydrochlorothiazide 25 mg p.o. daily, pravastatin 40 mg p.o. daily, omega 3 one tablet daily, naproxen 500 mg twice daily, Flonase 2 puffs in each nostril daily, Zyrtec 10 mg as directed, aspirin 81 mg p.o. daily. FAMILY HISTORY: Significant for mother had heart disorder,at age of 69 irregular heart beat caused her . Father had hypertension. SOCIAL HISTORY: Quit smoking in 1980. Prior to that smoked 1 pack a day for 14 years. No alcohol use, no drug use. and lives with his . REVIEW OF SYMPTOMS: As per HPI. Rest of the review of symptoms negative. PHYSICAL EXAMINATION: GENERAL: The patient is of moderate build, not in acute distress. VITAL SIGNS: Temperature 36.9, pulse 79, respiratory rate 18, blood pressure 126/85, oxygen 96% on room air. HEENT: No pallor, no icterus. Pupils equal, round, reactive to light. NECK: No JVD, no neck masses, no carotid bruits. CARDIOVASCULAR: S1, S2 heard, regular rate and rhythm, no murmur, no gallop. RESPIRATORY SYSTEM: Normal AP diameter. No accessory muscle use. No wheezing, no crackles. ABDOMEN: Soft, bowel sounds present. Nontender. No distention. CENTRAL NERVOUS SYSTEM: Cranial nerves II-XII grossly intact. Nonfocal. EXTREMITIES: No edema, no erythema. Right, wrist cardiac cath site. No drainage, no swelling seen. LABORATORY DATA: WBC 11, hemoglobin 15.6, hematocrit 43.3, platelets 307. PT 11.1, INR 1.1, APTT 23.1. Sodium 136, potassium 3.7, chloride 102, bicarb 26, BUN 25, creatinine 1.15. Serum glucose 230, calcium 9.1, total bilirubin 0.3, AST 43, ALT 45, alkaline phosphatase 95. Troponin I 0.9, lipase 123. IMAGING DATA: Chest x-ray, mild congestion seen. EKG: Normal sinus rhythm at the rate of [address] elevations in the anterior leads. ASSESSMENT AND PLAN: This is a 67-year-old male who presents with ST elevated myocardial infarction. 1. Chest pain, ST-elevated myocardial infarction in the anterior leads status post cardiac catheterization with a drug-eluting stent to the mid LAD which was 90% blocked and he also has [id number] disease in circumflex and RCA with 50% to 60% blockages for which medical management is recommended. The patient is currently on Brilinta, aspirin, Lopressor, high-dose statin, and lisinopril. Post cardiac catheterization management as per cardiology and further management as per cardiology. We will follow serial enzymes and echocardiogram. 2. Hyperlipidemia, on statin. We will follow fasting lipid profile. 3. Hypertension, currently on lisinopril and Lopressor. We will monitor his blood pressure. 4. There is questionable pneumonia, he is on doxycycline, will complete the course. 5. Prediabetes. Will follow the HbA1c levels. 6. Deep venous thrombosis prophylaxis, sequential compression devices. DISPOSITION: Closely monitor in the ICU. Level 1 full code. MTDD
[2018-06-13 06:08] LABS: Basophils # (auto) 0.02 K/uL (0-0.2); Basophils % (auto) 0.2 %; Eosinophils # (auto) 0.14 K/uL (0-0.5); Eosinophils % (auto) 1.1 %; Hematocrit (blood only) 38.8 % (42-52); Immature Granulocytes # (auto) 0.11 K/uL (0.00-0.02); Immature Granulocytes % (auto) 0.9 %; Lymphocytes # (auto) 3.33 K/uL (1.2-3.4); Lymphocytes % (auto) 25.8 %; Mean Corpuscular Hgb Conc 36.1 g/dL (32-36); Mean Corpuscular Volume 83.8 fL (80-100); Mean Platelet Volume 9.8 fL (7.4-10.4); Monocytes # (auto) 1.37 K/uL (0.11-0.59); Monocytes % (auto) 10.6 %; Neutrophils # (auto) 7.95 K/uL (1.4-6.5); Neutrophils % (auto) 61.4 %; Platelet Count 262 K/uL (130-400); RDW Coefficient of Variation 13.4 % (11.5-14.5); RDW Standard Deviation 40.1 fL (36.4-46.3); Red Blood Count 4.63 M/uL (4.7-6.1); White Blood Count 12.92 K/uL (4.8-10.8)
--- NOTE | 2018-06-13 06:17 | XRay Report ---
XR chest 1V portable CLINICAL HISTORY: Chest Pain dyspnea COMPARISON STUDY: No previous studies for comparison. FINDINGS: Findings consistent with pulmonary edema. Prominent bronchovascular markings throughout bot h lungs. Diaphragms are smooth. IMPRESSION: Pulmonary edema. The above report was generated using voice recognition software. It may contain grammatical, syntax or spelling errors. Electronically signed by: Faustino Roa M.D. 06/13/2018 6:15 AM
[2018-06-13] MEDS ORDERED: ALUMINUM/MAGNESIUM/SIMETH (MAALOX MAX) 30 ML UDC PO PRN (06:20)
[2018-06-13 08:12] LABS: Troponin I 97.9 ng/ml (0-0.045)
[2018-06-13 08:12] LABS: Estimated Average Glucose 143 mg/dl; Hemoglobin A1C 6.6 % (4.5-5.6)
[2018-06-13] MEDS: METOPROLOL TARTRATE 25 MG TAB PO SCH ×2 (08:38→20:28)
[2018-06-13] MEDS: ATORVASTATIN 40 MG TAB PO SCH (08:38)
[2018-06-13] MEDS: LISINOPRIL 5 MG TAB PO SCH (08:39)
[2018-06-13] MEDS: ASPIRIN 81 MG ECTAB PO SCH (08:39)
[2018-06-13] MEDS ORDERED: DOXYCYCLINE HYCLATE 100 MG CAP PO SCH (09:00)
--- NOTE | 2018-06-13 09:27 | Cardiology Progress Note ---
Date of Service June 13, 2018 Assessment & Plan (1) ACS (acute coronary syndrome): 2. Ischemic cardiomyopathy -- EF 35-40% with LAD distribution wall motion abnormality. 3. Hypertension 4. DM2 5. Dyslipidemia Minimal residual chest pain but otherwise looks well. Hemodynamically and electrically stable. No post procedure access site complications. Continue to trend troponin until peak Continue DAPT with aspirin/ticagrelor Continue high intensity statin. will consider vascepa as an outpatient Start beta-torrey, LEXI this morning From a cardiac standpoint if chest pain-free okay for transfer to telemetry later today. Subjective Reports some mild chest discomfort for the majority of the night. Pain improved this morning. Denies shortness of breath. No other new complaints. Telemetry reviewedno events. Review of Systems Review of Systems: All systems reviewed & are unremarkable except as noted in HPI & below Physical Exam Constitutional: well developed and well nourished Eyes: + anicteric sclerae ENMT: Mallampati Class: III Respiratory: normal respiratory effort, lungs clear to auscultation Cardiovascular: RRR, no murmur, no edema Rate/Rhythm: regular rate Heart Sounds: no murmur Extremities: no edema Right radial artery access site with no ecchymosis, hematoma. Distal pulse and sensation intact. Gastrointestinal (Abdomen): normal bowel sounds, soft, nontender, no hepatosplenomegaly Skin: no rashes, warm and dry Neurologic: moves all extremities Psychiatric: A+Ox3, euthymic affect Results & Data Vital Signs (Past 12 Hours) Vital Signs Temp Pulse Pulse Pulse Resp BP BP 06/13/18 06:00 77 19 132/88 06/13/18 05:00 67 17 128/83 06/13/18 04:00 36.7 C 62 19 139/89 06/13/18 03:00 78 18 135/82 06/13/18 02:30 71 17 134/84 06/13/18 02:00 72 15 127/82 06/13/18 01:45 75 16 135/83 06/13/18 01:30 73 16 125/91 06/13/18 01:15 80 16 142/99 H 06/13/18 01:00 79 86 19 153/97 H 06/13/18 00:45 78 17 150/90 H 06/13/18 00:30 36.9 C 84 18 149/92 H 06/13/18 00:20 36.9 C 77 18 126/85 06/12/18 23:02 104 H 18 06/12/18 22:56 06/12/18 22:54 103 H 20 06/12/18 22:44 37.3 C 122 H 18 214/131 H BP Pulse Ox 06/13/18 06:00 97 06/13/18 05:00 94 06/13/18 04:00 97 06/13/18 03:00 94 06/13/18 02:30 95 06/13/18 02:00 94 06/13/18 01:45 96 06/13/18 01:30 97 06/13/18 01:15 97 06/13/18 01:00 95 06/13/18 00:45 94 06/13/18 00:30 97 06/13/18 00:20 126/85 96 06/12/18 23:02 180/113 H 96 06/12/18 22:56 97 06/12/18 22:54 183/115 H 96 06/12/18 22:44 97
--- NOTE | 2018-06-13 09:43 | Hospitalist Progress Note ---
Date of Service June 13, 2018 Assessment & Plan (1) ST elevation myocardial infarction (STEMI): (2) ACS (acute coronary syndrome): (3) Prediabetes: (4) Allergic rhinitis: (5) HLD (hyperlipidemia): (6) HTN (hypertension): S/P LAD Stent, radial approach, trend troponin, Continue DAPT with aspirin/ticagrelor, statin, consider Vascepa as an outpatient, Start beta-torrey & LEXI this morning, Tele Later today. DC in 1-2 days Cardiac Cath Procedure Full Procedure Date June 13, 2018 Pre-Procedure Diagnosis Pre-Procedure Diagnosis: STEMI AUC Score AUC Score: 9 Post-Procedure Diagnosis Post-Procedure Diagnosis: Severe CAD and Normal Intracardiac Pressures Procedure(s) Performed Procedure(s) Performed: Coronary Angiography, Left Heart Cath and Drug Eluting Stent Vendor Quality Supervisor Gomez Bahena MD Medication(s): Fentanyl, Heparin, Lidocaine 1%, Nicardipine, Nitroglycerin and Versed Medication(s): Ticagrelor Summary of Findings Indication: STEMI/Heart Alert Subjective 67-year-old male with past medical history significant for prediabetes, hyperlipidemia, hypertension, allergic rhinitis, who presents with chest pain and found to have ST elevated [place] in the anterior leads, status post emergent cardiac catheterization and stent to the mid LAD. Currently, the patient is pain free. The patient, by the time that he came to the ER, was pain free, but because of EKG changes he had a cardiac catheterization. Currently resting comfortably and hemodynamically stable. The patient states in April, he had an episode of bronchitis and treated with antibiotics and steroids and says about 1 week ago again he was having cough, cold-like symptoms, saw his family doctor and was prescribed doxy and prednisone. He was given 10-day course of doxy. But since last 1 week, he is getting on and off pressure feeling in the sternum that lasts only a few seconds, but today he worked in his yard and came home and he did okay at that time, but when he was getting ready to sleep, he noticed again retrosternal chest pain 5/10 in severity, pressure-like feeling, some tingliness in the left arm. He thought it is heartburn and took couple of glasses of water, but that did not help, then at that time he got concerned. He took a dose of aspirin and called his son and he was brought to the ER. By the time they reached the ER, his pain subsided, but because of ST elevation in the EKG in the anterior leads, his cardiac cath was done. During the episode, he did not have any shortness of breath or sweating or dizziness. Denies any headache. No blurred visions. No nausea, no abdominal pain. Normal bowel and bladder movements. No hematuria, no burning micturition, no melena or blood in the stools. No swelling in the legs. No rash. Currently resting comfortably and emodynamically stable. His recent x-ray done on 06/06/2018 showed possible pneumonia in the left lower lobe, for which he is on doxycycline and is supposed to get repeat x-ray in 1 month. ROS-No Headache, No Visual Changes, No Nausea, No Vomiting, No Fever, No Chills, No Neck Pain or Stiffness, No Chest Pain, No Palpitations, No SOB, No VICTORIA, No Cough, No Sputum, No Wheezing, No Abdominal Pain, No Diarrhea, No Hematemesis, No Hemoptysis, No Unexpected Weight Loss, No Flank pain, No Melena, No Hematochezia, No Frequency, No Urgency, No Burning, No Hematuria, No Rashes, No Diaphoresis. Appetite is Normal Physical Exam Gen-AAO x 3, NAD, Afebrile Head-NCAT, EOMI, PERRLA, Anicteric Sclera, No Posterior Pharyngeal Erythema Neck-Supple, No JVD, No Thyromegaly, No Masses, No LAD, No Bruits Lungs-Clear to Auscultation Bilaterally, No Rales, No Rhonchi, No Wheezing, No Crepitus Chest-No S4, +S1, +S2, No S3, No Murmurs, No Rubs, No Gallops, No Ectopy Abdomen-Soft, Bowel Sounds Present, Non Tender, Non Distended, No Hepatomegaly, No Splenomegaly, No Palpable Masses, No Rebound, No Rigidity, No Guarding Musculoskeletal-Full Range of Motion Bilaterally, No CVAT Extremities-No Cyanosis, No Clubbing, No Edema Nuero-Cranial Nerves II-XII grossly intact, Motor WNL, DTRs WNL, Strength WNL, Non Focal Psych-Normal Mood Results & Data Vital Signs (Past 12 Hours) Vital Signs Temp Pulse Pulse Pulse Resp BP BP 05/02/19 09:00 85 20 145/96 H 06/13/18 08:14 37.1 C 80 128/79 06/13/18 06:00 77 19 132/88 06/13/18 05:00 67 17 128/83 06/13/18 04:00 36.7 C 62 19 139/89 06/13/18 03:00 78 18 135/82 06/13/18 02:30 71 17 134/84 06/13/18 02:00 72 15 127/82 06/13/18 01:45 75 16 135/83 06/13/18 01:30 73 16 125/91 06/13/18 01:15 80 16 142/99 H 06/13/18 01:00 79 86 19 153/97 H 06/13/18 00:45 78 17 150/90 H 06/13/18 00:30 36.9 C 84 18 149/92 H 06/13/18 00:20 36.9 C 77 18 126/85 06/12/18 23:02 104 H 18 06/12/18 22:56 06/12/18 22:54 103 H 20 06/12/18 22:44 37.3 C 122 H 18 214/131 H BP Pulse Ox 06/13/18 09:00 97 06/13/18 08:14 96 06/13/18 06:00 97 06/13/18 05:00 94 06/13/18 04:00 97 06/13/18 03:00 94 06/13/18 02:30 95 06/13/18 02:00 94 06/13/18 01:45 96 06/13/18 01:30 97 06/13/18 01:15 97 06/13/18 01:00 95 06/13/18 00:45 94 06/13/18 00:30 97 06/13/18 00:20 126/85 96 06/12/18 23:02 180/113 H 96 06/12/18 22:56 97 06/12/18 22:54 183/115 H 96 06/12/18 22:44 97 Current Diagnoses Acute ischemic heart disease, unspecified (06/12/18) Allergies pollen extracts Allergy (Intermediate, Verified 06/12/18 22:42) ITCHY EYES, SNEEZING, CONGESTION Height/Weight/Isolation Height 6 ft 1 in Weight 93.3 kg Chemistry 06/12/18 22:35 Sodium 136 Potassium 3.7 Chloride 102 Carbon Dioxide 26 Anion Gap 8.0 BUN 25 H Creatinine 1.15 Glucose 230 H (1) ST elevation myocardial infarction (STEMI) Involved coronary artery: LAD coronary artery Qualified Code(s): I21.02 - ST elevation (STEMI) myocardial infarction involving left anterior descending coronary artery
[2018-06-13] MEDS ORDERED: cefTRIAXone SODIUM 1,000 MG/50 ML BAG IV STA (10:14)
--- NOTE | 2018-06-13 10:30 | Critical Care Consultation ---
Date of Consultation June 13, 2018 Assessment & Plan (1) ST elevation myocardial infarction (STEMI): Neuro- awake alert CV- HD stable. STEMI s/p JAVED. aspirin, ticagrelor, atorvastatin, metoprolol, lisinopril Pulmonary- possible recent bronchitis or pneumonia. sat well on RA ID- possible pneumonia/bronchitis on doxycycline. no clear current infection Renal- cr ok GI- diet as tolerated Heme- Endocrine borderline DM hga1c 6.6 Dispo- monitor in ICU post STEMI History of Present Illness Attending Physician: Peña Phelps MD History of Present Illness 67 y/o male with histiry of HTN, hyperlipidemia, borderline DM who presents with chest pain that started about an hour prior to arrival in ED. the pain was going to his shoulder and arm. He was taken to the [facility] and had JAVED placed in LAD. this morning he complains of some pain at bottom of his ribs but this is greatly improved. no SOB. He says that he is being treated for pneumonia on the left side for about a week and has had respiratory symptoms/bronchitis for a few weeks. recently congestoin but this had resolved Allergies Allergy/AdvReac Type Severity Reaction Status Date / Time pollen extracts Allergy Intermediate ITCHY Verified 06/12/18 22:42 EYES, SNEEZING, CONGESTION Home Medications Home Medications Medication Instructions Recorded Confirmed Type aspirin [Aspir-81] 81 mg PO DAILY 06/12/18 06/12/18 History cetirizine [Zyrtec] 10 mg PO DAILY PRN 06/12/18 06/12/18 History doxycycline hyclate 100 mg PO DAILY 06/12/18 06/12/18 History hydrochlorothiazide 25 mg PO DAILY 06/12/18 06/12/18 History omega 6-cid-rfx-fish oil [Fish Oil] 1 cap PO DAILY 06/12/18 06/12/18 History pravastatin 40 mg PO DAILY 06/12/18 06/12/18 History prednisone 10 mg PO DAILY 06/12/18 06/12/18 History Patient History Medical History No significant past medical history Social History Preferred Language: Omani Communication Ability: Effective Crm Marketing Manager Required: No Beliefs That Will Affect Care: None Current Living Situation: Alone Other Information That Helps Us Care for You: No Feels Safe at Home: Yes Safety Concerns: Feels Safe At This Time Smoking Status: Former smoker Do You Dip or Chew Tobacco: No Second Hand Exposure: No Tobacco Cessation Education Requested by Patient: No Hx Alcohol Use: No Hx Substance Use: No Review of Systems Review of Systems: Constitutional: no fevers no chills no weight loss Eyes: no blurry or double vision EENT: no sore throat, + congestion Respiratory: + cough no shortness of breath Cardiovascular: + chest pain no palpitations GI: no abdominal pain, no nausea, no vomiting, no diarrhea, no constipation Gu: no dysuria, no frequency MSK: no joint pain, + muscle aches Skin: no rash Neuro: no headache, no dizziness, no focal weakness Endocrine: no heat or cold intolerance heme: no easy bruising, no lymphadenopathy Psych: no depression, no anxiety Physical Exam Physical Exam: Constitutional: Comfortable NAD HEENT: normocephalic atraumatic. MMM. no cervical lymphadenopathy CV: RRR nl s1,s2 no murmurs rubs or gallops Lungs: clear to auscultation bilaterally. no accessory muscle use Abd: soft nontender nondistended. normal bowel sounds Ext: no edema. no cyanosis, no clubbing Skin: warm dry Neuro: alert and oriented. moving all extremities Psych: normal mood and affect Results & Data Vital Signs (Past 12 Hours) Vital Signs Temp Pulse Pulse Pulse Resp BP BP 06/13/18 10:00 66 26 H 135/96 06/13/18 09:00 85 20 145/96 H 06/13/18 08:14 37.1 C 80 128/79 06/13/18 06:00 77 19 132/88 06/13/18 05:00 67 17 128/83 06/13/18 04:00 36.7 C 62 19 139/89 06/13/18 03:00 78 18 135/82 06/13/18 02:30 71 17 134/84 06/13/18 02:00 72 15 127/82 06/13/18 01:45 75 16 135/83 06/13/18 01:30 73 16 125/91 06/13/18 01:15 80 16 142/99 H 06/13/18 01:00 79 86 19 153/97 H 06/13/18 00:45 78 17 150/90 H 06/13/18 00:30 36.9 C 84 18 149/92 H 06/13/18 00:20 36.9 C 77 18 126/85 06/12/18 23:02 104 H 18 06/12/18 22:56 06/12/18 22:54 103 H 20 06/12/18 22:44 37.3 C 122 H 18 214/131 H BP Pulse Ox 06/13/18 10:00 97 06/13/18 09:00 97 06/13/18 08:14 96 06/13/18 06:00 97 06/13/18 05:00 94 06/13/18 04:00 97 06/13/18 03:00 94 06/13/18 02:30 95 06/13/18 02:00 94 06/13/18 01:45 96 06/13/18 01:30 97 06/13/18 01:15 97 06/13/18 01:00 95 06/13/18 00:45 94 06/13/18 00:30 97 06/13/18 00:20 126/85 96 06/12/18 23:02 180/113 H 96 06/12/18 22:56 97 06/12/18 22:54 183/115 H 96 06/12/18 22:44 97 Laboratory Results Laboratory Results - last 24 hr 06/12/18 06/12/18 06/12/18 22:35 22:35 22:35 WBC 11.10 H RBC 5.13 Hgb 15.6 Hct 43.3 MCV 84.4 MCH 30.4 MCHC 36.0 RDW Std Deviation 40.2 RDW Coeff of Augusto 13.2 Plt Count 307 MPV 10.1 Immature Gran % (Auto) 0.9 Neut % (Auto) 64.4 Lymph % (Auto) 26.9 [place] % (Auto) 7.3 Eos % (Auto) 0.3 Baso % (Auto) 0.2 Immature Gran # (Auto) 0.10 H Neut # (Auto) 7.15 H Lymph # (Auto) 2.99 [place] # (Auto) 0.81 H Eos # (Auto) 0.03 Baso # (Auto) 0.02 PT 11.1 INR 1.1 APTT 23.1 PTT Ratio 0.9 Activ Coag Time Kaolin Sodium 136 Potassium 3.7 Chloride 102 Carbon Dioxide 26 Anion Gap 8.0 BUN 25 H Creatinine 1.15 Est Cr Clr Drug Dosing 77.7 Est GFR ( Amer) 76.4 Est GFR (Non-Af Amer) 65.9 BUN/Creatinine Ratio 21.4 H Glucose 230 H POC Glucose Estimat Average Glucose Hemoglobin A1c Calcium 9.1 Total Bilirubin 0.3 AST 43 H ALT 45 Alkaline Phosphatase 95 POC Troponin I Troponin I 0.919 H* Total Protein 7.5 Albumin 3.8 Globulin 3.7 Albumin/Globulin Ratio 1.0 Triglycerides Cholesterol LDL Cholesterol, Calc VLDL Cholesterol, Calc HDL Cholesterol Cholesterol/HDL Ratio Lipase 123 Nasal Screen MRSA (PCR) Hepatitis C Ab Screen 06/12/18 06/12/18 06/13/18 22:40 22:43 00:24 WBC RBC Hgb Hct MCV MCH MCHC RDW Std Deviation RDW Coeff of Augusto Plt Count MPV Immature Gran % (Auto) Neut % (Auto) Lymph % (Auto) [place] % (Auto) Eos % (Auto) Baso % (Auto) Immature Gran # (Auto) Neut # (Auto) Lymph # (Auto) [place] # (Auto) Eos # (Auto) Baso # (Auto) PT INR APTT PTT Ratio Activ Coag Time Kaolin 213 H Sodium Potassium Chloride Carbon Dioxide Anion Gap BUN Creatinine Est Cr Clr Drug Dosing Est GFR ( Amer) Est GFR (Non-Af Amer) BUN/Creatinine Ratio Glucose POC Glucose Estimat Average Glucose Hemoglobin A1c Calcium Total Bilirubin AST ALT Alkaline Phosphatase POC Troponin I 0.47 H Troponin I Total Protein Albumin Globulin Albumin/Globulin Ratio Triglycerides Cholesterol LDL Cholesterol, Calc VLDL Cholesterol, Calc HDL Cholesterol Cholesterol/HDL Ratio Lipase Nasal Screen MRSA (PCR) Negative Hepatitis C Ab Screen 06/13/18 06/13/18 06/13/18 05:57 06:00 06:00 WBC 12.92 H RBC 4.63 L Hgb 14.0 Hct 38.8 L MCV 83.8 MCH 30.2 MCHC 36.1 H RDW Std Deviation 40.1 RDW Coeff of Augusto 13.4 Plt Count 262 MPV 9.8 Immature Gran % (Auto) 0.9 Neut % (Auto) 61.4 Lymph % (Auto) 25.8 [place] % (Auto) 10.6 Eos % (Auto) 1.1 Baso % (Auto) 0.2 Immature Gran # (Auto) 0.11 H Neut # (Auto) 7.95 H Lymph # (Auto) 3.33 [place] # (Auto) 1.37 H Eos # (Auto) 0.14 Baso # (Auto) 0.02 PT INR APTT PTT Ratio Activ Coag Time Kaolin Sodium Potassium Chloride Carbon Dioxide Anion Gap BUN Creatinine Est Cr Clr Drug Dosing Est GFR ( Amer) Est GFR (Non-Af Amer) BUN/Creatinine Ratio Glucose POC Glucose Estimat Average Glucose 143 Hemoglobin A1c 6.6 H Calcium Total Bilirubin AST ALT Alkaline Phosphatase POC Troponin I Troponin I 97.900 H* Total Protein Albumin Globulin Albumin/Globulin Ratio Triglycerides 301 H Cholesterol 145 LDL Cholesterol, Calc 48 VLDL Cholesterol, Calc 60 HDL Cholesterol 37 Cholesterol/HDL Ratio 4 Lipase Nasal Screen MRSA (PCR) Hepatitis C Ab Screen 06/13/18 06/13/18 06:00 06:14 WBC RBC Hgb Hct MCV MCH MCHC RDW Std Deviation RDW Coeff of Augusto Plt Count MPV Immature Gran % (Auto) Neut % (Auto) Lymph % (Auto) [place] % (Auto) Eos % (Auto) Baso % (Auto) Immature Gran # (Auto) Neut # (Auto) Lymph # (Auto) [place] # (Auto) Eos # (Auto) Baso # (Auto) PT INR APTT PTT Ratio Activ Coag Time Kaolin Sodium Potassium Chloride Carbon Dioxide Anion Gap BUN Creatinine Est Cr Clr Drug Dosing Est GFR ( Amer) Est GFR (Non-Af Amer) BUN/Creatinine Ratio Glucose POC Glucose 114 H Estimat Average Glucose Hemoglobin A1c Calcium Total Bilirubin AST ALT Alkaline Phosphatase POC Troponin I Troponin I Total Protein Albumin Globulin Albumin/Globulin Ratio Triglycerides Cholesterol LDL Cholesterol, Calc VLDL Cholesterol, Calc HDL Cholesterol Cholesterol/HDL Ratio Lipase Nasal Screen MRSA (PCR) Hepatitis C Ab Screen Neg (1) ST elevation myocardial infarction (STEMI) Involved coronary artery: LAD coronary artery Qualified Code(s): I21.02 - ST elevation (STEMI) myocardial infarction involving left anterior descending coronary artery
[2018-06-13] MEDS ORDERED: cefTRIAXone SODIUM 2,000 MG in DEXTROSE 5% 50 ML IV STA (11:00)
[2018-06-13] MEDS ORDERED: CETIRIZINE HCL 10 MG TABLET PO PRN (15:43)
[2018-06-13] MEDS: TICAGRELOR 90 MG TAB PO SCH (20:28)
[2018-06-14] MEDS ORDERED: SODIUM CHLORIDE 0.65% NA SOLN 45 ML (OCEAN) ONE (01:01)
[2018-06-14] MEDS ORDERED: SODIUM CHLORIDE 0.65% NA SOLN 45 ML (OCEAN) PRN (01:16)
[2018-06-14 06:51] LABS: Hematocrit (blood only) 41.3 % (42-52); Hemoglobin 14.5 g/dL (14.0-18.0); Mean Corpuscular Hgb Conc 35.1 g/dL (32-36); Mean Corpuscular Volume 85.5 fL (80-100); Mean Platelet Volume 9.9 fL (7.4-10.4); Platelet Count 248 K/uL (130-400); RDW Coefficient of Variation 13.7 % (11.5-14.5); RDW Standard Deviation 42.3 fL (36.4-46.3); Red Blood Count 4.83 M/uL (4.7-6.1); White Blood Count 10.14 K/uL (4.8-10.8)
[2018-06-14 07:31] LABS: BUN Creatinine Ratio 21.9 (10-20); Calcium 8.7 mg/dl (8.5-10.1); Creatinine Clr Calc Pharmacy 100.1 ml/min; Est GFR (African American) 106.8; Est GFR (Non-African American) 92.1; Potassium 4.1 mmol/L (3.5-5.1)
[2018-06-14] MEDS: ASPIRIN 81 MG ECTAB PO SCH (07:59)
[2018-06-14] MEDS: ATORVASTATIN 40 MG TAB PO SCH (07:59)
[2018-06-14] MEDS: TICAGRELOR 90 MG TAB PO SCH (07:59)
[2018-06-14] MEDS: METOPROLOL TARTRATE 25 MG TAB PO SCH (07:59)
[2018-06-14] MEDS: LISINOPRIL 5 MG TAB PO SCH (08:00)
[2018-06-14] MEDS ORDERED: OMEGA-3 (PURIFIED FISH OIL) 1 GM CAP PO SCH (09:00)
--- NOTE | 2018-06-14 11:06 | Discharge Summary ---
Date of Service June 14, 2018 Admission HPI Per Admitting Provider 67-year-old male with past medical history significant for prediabetes, hyperlipidemia, hypertension, allergic rhinitis, who presents with chest pain and found to have ST elevated AK in the anterior leads, status post emergent cardiac catheterization and stent to the mid LAD. Currently, the patient is pain free. The patient, by the time that he came to the ER, was pain free, but because of EKG changes he had a cardiac catheterization. Currently resting comfortably and hemodynamically stable. The patient states in April, he had an episode of bronchitis and treated with antibiotics and steroids and says about 1 week ago again he was having cough, cold-like symptoms, saw his family doctor and was prescribed doxy and prednisone. He was given 10-day course of doxy. But since last 1 week, he is getting on and off pressure feeling in the sternum that lasts only a few seconds, but today he worked in his yard and came home and he did okay at that time, but when he was getting ready to sleep, he noticed again retrosternal chest pain 5/10 in severity, pressure-like feeling, some tingliness in the left arm. He thought it is heartburn and took couple of glasses of water, but that did not help, then at that time he got concerned. He took a dose of aspirin and called his son and he was brought to the ER. By the time they reached the ER, his pain subsided, but because of ST elevation in the EKG in the anterior leads, his cardiac cath was done. During the episode, he did not have any shortness of breath or sweating or dizziness. Denies any headache. No blurred visions. No nausea, no abdominal pain. Normal bowel and bladder movements. No hematuria, no burning micturition, no melena or blood in the stools. No swelling in the legs. No rash. Currently resting comfortably and emodynamically stable. His recent x-ray done on 06/06/2018 showed possible pneumonia in the left lower lobe, for which he is on doxycycline and is supposed to get repeat x-ray in 1 month. Admission Exam Per Admitting Provider PHYSICAL EXAMINATION: GENERAL: The patient is of moderate build, not in acute distress. VITAL SIGNS: Temperature 36.9, pulse 79, respiratory rate 18, blood pressure 126/85, oxygen 96% on room air. HEENT: No pallor, no icterus. Pupils equal, round, reactive to light. NECK: No JVD, no neck masses, no carotid bruits. CARDIOVASCULAR: S1, S2 heard, regular rate and rhythm, no murmur, no gallop. RESPIRATORY SYSTEM: Normal AP diameter. No accessory muscle use. No wheezing, no crackles. ABDOMEN: Soft, bowel sounds present. Nontender. No distention. CENTRAL NERVOUS SYSTEM: Cranial nerves II-XII grossly intact. Nonfocal. EXTREMITIES: No edema, no erythema. Right, wrist cardiac cath site. No drainage, no swelling seen. Principal Diagnosis STEMI/ACS HTN HLD Pre DM Allergic Rhinitis PNA Discharge Exam ROS-No Headache, No Visual Changes, No Nausea, No Vomiting, No Fever, No Chills, No Neck Pain or Stiffness, No Chest Pain, No Palpitations, No SOB, No VICTORIA, No Cough, No Sputum, No Wheezing, No Abdominal Pain, No Diarrhea, No Hematemesis, No Hemoptysis, No Unexpected Weight Loss, No Flank pain, No Melena, No Hematochezia, No Frequency, No Urgency, No Burning, No Hematuria, No Rashes, No Diaphoresis. Appetite is Normal Physical Exam Gen-AAO x 3, NAD, Afebrile Head-NCAT, EOMI, PERRLA, Anicteric Sclera, No Posterior Pharyngeal Erythema Neck-Supple, No JVD, No Thyromegaly, No Masses, No LAD, No Bruits Lungs-Clear to Auscultation Bilaterally, No Rales, No Rhonchi, No Wheezing, No Crepitus Chest-No S4, +S1, +S2, No S3, No Murmurs, No Rubs, No Gallops, No Ectopy Abdomen-Soft, Bowel Sounds Present, Non Tender, Non Distended, No Hepatomegaly, No Splenomegaly, No Palpable Masses, No Rebound, No Rigidity, No Guarding Musculoskeletal-Full Range of Motion Bilaterally, No CVAT Extremities-No Cyanosis, No Clubbing, No Edema Nuero-Cranial Nerves II-XII grossly intact, Motor WNL, DTRs WNL, Strength WNL, Non Focal Psych-Normal Mood Discharge Data Allergies Allergy/AdvReac Type Severity Reaction Status Date / Time pollen extracts Allergy Intermediate ITCHY Verified 06/12/18 22:42 EYES, SNEEZING, CONGESTION Consultations 06/12/18 23:13 Consult Case Management - Discharge Planning Routine Consult Formulation Scientist Routine 06/13/18 00:32 Consult Cardiac Rehabilitation Routine 06/13/18 01:24 Consult Cardiology Routine Procedures Performed Operation Date: 06/12/18 22:50 Actual Procedures p Aspiration/PCI w/JAVED for Stemi - Rambo Bahena MD Ordered Studies 06/12/18 22:52 CL Cath Imgs for PACS use only Stat Current Diagnoses Hyperlipidemia, unspecified (06/12/18) Essential (primary) hypertension (06/12/18) ST elevation (STEMI) myocardial infarction involving left anterior descending coronary artery (06/12/18) Acute ischemic heart disease, unspecified (06/12/18) Allergic rhinitis, unspecified (06/12/18) Prediabetes (06/12/18) Allergies pollen extracts Allergy (Intermediate, Verified 06/12/18 22:42) ITCHY EYES, SNEEZING, CONGESTION Height/Weight/Isolation Height 6 ft 1 in Weight 93 kg Chemistry 06/12/18 06/14/18 22:35 06:24 Sodium 136 138 Potassium 3.7 4.1 Chloride 102 108 H Carbon Dioxide 26 25 Anion Gap 8.0 5.0 BUN 25 H 18 Creatinine 1.15 0.82 D Glucose 230 H 99 Hospital Course (1) ST elevation myocardial infarction (STEMI): (2) ACS (acute coronary syndrome): (3) Prediabetes: (4) Allergic rhinitis: (5) HLD (hyperlipidemia): (6) HTN (hypertension): S/P LAD Stent, radial approach, troponins are trending down, Continue DAPT with aspirin/ticagrelor, statin, consider Vascepa as an outpatient, beta-torrey & LEXI DC today after seen by Cards Cardiac Cath Procedure Full Procedure Date June 13, 2018 Pre-Procedure Diagnosis Pre-Procedure Diagnosis: STEMI Post-Procedure Diagnosis: Severe CAD and Normal Intracardiac Pressures Procedure(s) Performed: Coronary Angiography, Left Heart Cath and Drug Eluting Stent Vehicle Body Builder-Gomez Bahena MD Indication: STEMI/Heart Alert Total Time Total Time Spent Total Time Spent (In Minutes): 45 mins Total Time Includes: Examination of the Patient, Discharge Planning, Medication Reconciliation and Communication With Other Providers Discharge Plan Discharge Items Patient Disposition: Home - Self-Care Reason For Visit: STEMI Discharge Diagnosis: STEMI/ACS HTN HLD Pre DM Allergic Rhinitis PNA Condition: Good Discharge Goals: Improve function Activity: As commented below Activity Comment: Post Cath directions per Cardiology Lifting: Gradually increase as tolerated Bathing: No limitations Sexual Activity: Wait until after follow-up appointment Exercise/Sports: Wait until after follow-up appointment Driving/Machine Use: No limitations Weightbearing: Left weightbearing and Right weightbearing Non-emergency contact: Primary Care Provider and Vehicle Body Builder Call non-emergency contact if: you have any medication questions, your symptoms worsen and your pain is not controlled Follow-up/Referrals: Cleveland Hadley MD [Primary Care Provider] - Diet: Carb Consistent or DM2 and Heart Healthy Addtl Provider Instructions: Needs f/u CXR 6 weeks to f/u on Pneumonia Prescriptions: New atorvastatin 40 mg Tablet 80 mg PO QAM Qty: 30 RF: 0 lisinopril [Zestril] 5 mg Tablet 5 mg PO QAM Qty: 30 RF: 0 metoprolol tartrate 25 mg Tablet 25 mg PO BID Qty: 60 RF: 0 Brilinta 90 mg Tablet 90 mg PO BID Qty: 60 RF: 0 Continued doxycycline hyclate 100 mg Tablet 100 mg PO DAILY RF: 0 cetirizine [Zyrtec] 10 mg Tablet 10 mg PO DAILY PRN (Reason: SEASONAL ALLERGIES) RF: 0 aspirin [Aspir-81] 81 mg Tablet,Delayed Release (Dr/Ec) 81 mg PO DAILY RF: 0 omega 1-qxj-swd-fish oil [Fish Oil] 1,000 mg (120 mg-180 mg) Capsule 1 cap PO DAILY RF: 0 Discontinued prednisone 10 mg Tablet 10 mg PO DAILY RF: 0 pravastatin 40 mg Tablet 40 mg PO DAILY RF: 0 hydrochlorothiazide 25 mg Tablet 25 mg PO DAILY RF: 0 Stand-Alone Forms: Call Back Authorization, [facility]/Other Patient Handouts: Prediabetes, Diabetes Meal Planning Discharge Orders: Discharge Order (Routine); Ordered 06/14/18 Ordered By: Krystian Donaldson Admission Data Admit Date/Time: 06/12/18 23:13 Attending Provider: Krystian Donaldson Admit Provider: Rambo Bahena Primary Care Provider: Cleveland Hadley Other Providers: Guy Mansfield ; Rambo Bahena Service: Telemetry
--- NOTE | 2018-06-14 21:20 | Cardiology Progress Note ---
Date of Service June 14, 2018 Assessment & Plan (1) ACS (acute coronary syndrome): 2. Ischemic cardiomyopathy -- EF 35-40% with LAD distribution wall motion abnormality. 3. Hypertension 4. DM2 5. Dyslipidemia 6. NSVT Chest pain resolved. Troponin peaked. Brief asymptomatic NSVT. Long discussion with patient regarding goals going forward, medications and follow-up. Also discussed potential benefit of lifeVest in setting of moderate LV dysfunction and NSVT -- patient declined. Home today on - DAPT with ASA/Ticagrelor, atorvatatin 80, metoprolol and lisinopril. - Follow-up with me in 2 weeks. Will discuss cardiac rehab. Consider Vascepa Subjective Chest pain resolved yesterday AM. Feeling well today. No complaints. Tele reviewed -- NSVT ~8-10 beats Review of Systems Review of Systems: All systems reviewed & are unremarkable except as noted in HPI & below Physical Exam Constitutional: well developed and well nourished Eyes: + anicteric sclerae ENMT: Mallampati Class: III Respiratory: normal respiratory effort, lungs clear to auscultation Cardiovascular: RRR, no murmur, no edema Rate/Rhythm: regular rate Heart Sounds: no murmur Extremities: no edema no access site complications Gastrointestinal (Abdomen): normal bowel sounds, soft, nontender, no hepatosplenomegaly Skin: no rashes, warm and dry Neurologic: moves all extremities Psychiatric: A+Ox3, euthymic affect Results & Data Vital Signs (Past 12 Hours) Vital Signs Temp Pulse Resp BP Pulse Ox 06/14/18 11:36 36.7 C 63 19 98/62 L 99 06/14/18 10:54 36.7 C 63 19 98/62 L 99
== END 2018-06-14 13:00 | disposition home or self-care (01) | DRG 246 ==
LOC: ED 22:22 → CC 23:10 → SUATTDRO 23:13 → 1E 23:13 → 2S 06-13 15:38

== ENCOUNTER 2024-08-18 23:24 | Inpatient (IN) ==
--- NOTE | 2024-08-19 | Emergency Department Note ---
Impression & Plan Chest pain, Severe hypertension ED Provider Note NAME: CARMEN LANTIGUA AGE: 73 SEX: Male INFORMANT: Patient ED PROVIDER(S): Satnam Almonte MD CHIEF COMPLAINT: Chest pain PLAN: Disposition: Admit Outpatient prescription management: none Referral: None MEDICAL DECISION MAKING: patient presented because of chest pain. He was significantly hypertensive. Patient had taken aspirin already. He does have a prescription for Cialis and has not taken any recently. Patient was given Nitropaste. Given his travel history, severe hypertension and chest pain patient underwent CT imaging of the chest after his ECG and chest x-ray were unremarkable. Laboratory testing was performed as well. On reassessment patient was doing well. CT angio of the chest was done and no evidence of dissection or PE. No pneumonia. Cardiac troponin negative as well as remainder of blood work. Given cardiac history and chest pain coupled with significant hypertension I did discuss further evaluation and management in the hospital. Patient is in agreement. His blood pressure did improve with the Nitropaste. Consultation was made with the [facility], Dr. Phelps. 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 Vital Signs: reviewed and remarkable for severe hypertension Additional History obtained from: Patient's regarding his prior history of VT Chronic Medical/Social Conditions affecting care: CAD Prior/ Outside/ External records reviewed: Discharge summary from June 2018 reviewed. Patient was admitted and treated for ST elevation VT. Patient underwent coronary stenting. Differential Diagnosis: Cardiac ischemia, aortic dissection, pulmonary embolism, pneumothorax, pneumonia, pericarditis, myocarditis, esophageal rupture, GERD, cholecystitis, pancreatitis, musculoskeletal, as well as other pathologies. Diagnostics, independently interpreted by me: ECG: Twelve-lead ECG reveals sinus bradycardia 59 bpm. LVH present. No ST elevation or depression. When compared to 03 September 2020 there is no change. Cardiac Monitoring: Cardiac monitoring ordered by me: The patient was placed on continuous cardiac monitoring and observed. It revealed a normal sinus rhythm at 62 beats per minute without ectopy or evidence of dysrhythmia. Medical decision rules: none Imaging studies: Chest x-ray. Findings: A chest x-ray was performed and revealed no pneumothorax, effusion, infiltrate, pulmonary edema, free air under the diaphragm, or wide mediastinum. Impression: No acute disease. CT scan of the chest is negative for dissection or PE. I refer you to the EMR for further details. HPI: 73 year old Male arrives for evaluation of chest pain. This started about 40 minutes prior to arrival and is currently resolved. Discomfort lasted just a few minutes. Patient thought it might be heartburn related so he took an antacid and drink water. This had no effect. Patient took his blood pressure and he noted it was significantly elevated which is unusual for him. Given the combination of the chest pain, cardiac history and significant elevation of blood pressure patient was concerned and came to the hospital.. The patient also notes the following associated symptoms, none. The patient has taken aspirin for relieving factors. Current pain is rated as 0/10. Patient has no travel to [place] recently. He did have a respiratory infection in was treated with antibiotic due to history of bronchiectasis. Pt denies LOC, headache, fevers, chills, diaphoresis, visual changes, neck pain, breathing difficulties, nausea, vomiting, abdominal pain, back pain, melena, hematochezia, urinary symptoms, numbness, weakness, lymphadenopathy, rash, or other complaints.. PAST MEDICAL HISTORY: See Below, CAD, VT PAST SURGICAL HISTORY: See Below, coronary stent SOCIAL HISTORY: See Below, HOME MEDICATIONS: See Below ALLERGIES: See Below VITALS: See Below PHYSICAL EXAMINATION: GENERAL: Awake, alert, well-appearing, in no distress HENT: Normocephalic, atraumatic. Oropharynx unremarkable. EYES: Normal conjunctiva. Sclera non-icteric. NECK: Inspection normal. Non-tender. Supple. No nuchal rigidity. FROM. No masses. RESPIRATORY: Clear to auscultation. No wheezes. No rales. Normal respiratory effort. CARDIAC: Normal rate. Normal rhythm. No murmurs. No rubs. Extremities warm and well perfused. Pulses equal. No JVD. GI: Soft, non-distended. No tenderness to palpation. No rebound or guarding. No masses. RECTAL: Deferred. MUSCULOSKELETAL: Atraumatic. Chest examination reveals no tenderness. The back is symmetrical on inspection without obvious abnormality. There is no CVA tenderness to palpation. No joint edema. LOWER EXTREMITIES: Calves are equal size bilaterally and non-tender. No edema. No discoloration. NEURO: Normal sensorium. No sensory or motor deficits noted. SKIN: No rash or jaundice noted. PROCEDURES: none CRITICAL CARE: none OBSERVATION NOTE: none Past Med/Surg History Problem List (Updated 08/18/24 @ 23:59 by Satnam Almonte MD) Severe hypertension (Acute) Chest pain (Acute) HTN (hypertension) Allergic rhinitis HLD (hyperlipidemia) Prediabetes ST elevation myocardial infarction (STEMI) (Acute) ACS (acute coronary syndrome) Medical History (Updated 08/18/24 @ 23:59 by Santam Almonte MD) No significant past medical history Social History Smoking Status: Former smoker Second Hand Exposure: No; Do You Dip or Chew Tobacco: No; Hx Alcohol Use: No Hx Substance Use: No Preferred Language: Greek Communication Ability: Effective Bass Mechanism Maker Required: No Beliefs That Will Affect Care: None Current Living Situation: Alone Feels Safe at Home: Yes Assistive Devices: Glasses Allergies Allergies Allergy/AdvReac Type Severity Reaction Status Date / Time pollen extracts Allergy Intermediate ITCHY Verified 08/19/24 01:41 EYES, SNEEZING, CONGESTION Home Meds Home Medications Medication Instructions Recorded Confirmed atorvastatin 80 mg tablet 80 mg PO QA 09/03/20 08/19/24 cetirizine 10 mg tablet (Zyrtec) 10 mg PO QAM 09/03/20 08/19/24 fluticasone propionate 50 1 spray intranasal QAM 09/03/20 08/19/24 mcg/actuation nasal spray,suspension (Flonase Allergy Relief) metoprolol succinate 50 mg 50 mg PO QA 09/03/20 08/19/24 tablet,extended release 24 hr multivitamin 1 tab PO QAM 09/03/20 08/19/24 albuterol sulfate 90 mcg/actuation 2 puff inhalation Q4 PRN Wheezing 08/19/24 08/19/24 aerosol inhaler ascorbic acid (vitamin C) 500 mg 500 mg PO QPM 08/19/24 08/19/24 tablet aspirin 81 mg chewable tablet 81 mg PO DAILY 08/19/24 08/19/24 fluticasone propionate 115 2 puff inhalation AMHS 08/19/24 08/19/24 mcg-salmeterol 21 mcg/actuation HFA inhaler (Advair HFA) [id number]-vit 1 tab PO QPM 08/19/24 08/19/24 D3-Boswellia 25 mcg-937.5 mg tablet losartan 25 mg tablet 12.5 mg PO QAM 08/19/24 08/19/24 omega-3 fatty acids 1,250 mg 1,250 mg PO DAILY 08/19/24 08/19/24 capsule tadalafil 2.5 mg tablet 2.5 mg PO DAILY PRN Erectile 08/19/24 08/19/24 Dysfunction Results & Data (ED) Vital Signs Vital Signs - 24 hr 08/18/24 23:27 08/18/24 23:35 08/18/24 23:35 Temperature 36.7 C Temperature Source Temporal Artery Scan Pulse Rate 60 Pulse Rate [Right Finger] 57 L Pulse Rate from SpO2 Sensor Pulse Rhythm Regular Pulse Rhythm [Right Finger] Pulse Strength Normal Pulse Strength [Right Finger] Respiratory Rate 18 14 Respiratory Effort / Characteristics Non-Labored Spontaneous Non-Labored Spontaneous Respiratory Depth Normal Normal Respiratory Pattern Regular Regular Blood Pressure 219/105 H Blood Pressure [Right Arm] 156/101 H Blood Pressure Mean 143 Blood Pressure Mean [Right Arm] 119 Blood Pressure Position Sitting Blood Pressure Position [Right Arm] Lying Pulse Oximetry 98 97 Oxygen Delivery Method Room Air Room Air Room Air Sepsis Recent Fever Within 48 Hours No Sepsis New/Unexplained Change in Mental Status N/A Sepsis Action Taken by Nursing No Action Required 08/18/24 23:35 08/19/24 00:27 08/19/24 00:27 Temperature Temperature Source Pulse Rate 56 L Pulse Rate [Right Finger] Pulse Rate from SpO2 Sensor Pulse Rhythm Regular Pulse Rhythm [Right Finger] Pulse Strength Pulse Strength [Right Finger] Respiratory Rate 14 Respiratory Effort / Characteristics Respiratory Depth Respiratory Pattern Blood Pressure 156/101 H 156/101 H Blood Pressure [Right Arm] Blood Pressure Mean 128 128 Blood Pressure Mean [Right Arm] Blood Pressure Position Blood Pressure Position [Right Arm] Pulse Oximetry 96 Oxygen Delivery Method Room Air Sepsis Recent Fever Within 48 Hours Sepsis New/Unexplained Change in Mental Status Sepsis Action Taken by Nursing 08/19/24 00:27 08/19/24 00:28 08/19/24 01:09 Temperature Temperature Source Pulse Rate 54 L 53 L Pulse Rate [Right Finger] Pulse Rate from SpO2 Sensor 54 L Pulse Rhythm Pulse Rhythm [Right Finger] Pulse Strength Pulse Strength [Right Finger] Respiratory Rate 22 Respiratory Effort / Characteristics Respiratory Depth Respiratory Pattern Blood Pressure 156/101 H Blood Pressure [Right Arm] Blood Pressure Mean 128 Blood Pressure Mean [Right Arm] Blood Pressure Position Blood Pressure Position [Right Arm] Pulse Oximetry 94 Oxygen Delivery Method Sepsis Recent Fever Within 48 Hours Sepsis New/Unexplained Change in Mental Status Sepsis Action Taken by Nursing 08/19/24 01:09 08/19/24 01:15 08/19/24 01:21 Temperature Temperature Source Pulse Rate 52 L 52 L Pulse Rate [Right Finger] Pulse Rate from SpO2 Sensor 53 L 52 L Pulse Rhythm Pulse Rhythm [Right Finger] Pulse Strength Pulse Strength [Right Finger] Respiratory Rate 20 15 Respiratory Effort / Characteristics Respiratory Depth Respiratory Pattern Blood Pressure 155/88 H Blood Pressure [Right Arm] Blood Pressure Mean 120 Blood Pressure Mean [Right Arm] Blood Pressure Position Blood Pressure Position [Right Arm] Pulse Oximetry 97 99 Oxygen Delivery Method Sepsis Recent Fever Within 48 Hours Sepsis New/Unexplained Change in Mental Status Sepsis Action Taken by Nursing 08/19/24 01:25 08/19/24 01:45 Temperature Temperature Source Pulse Rate 52 L Pulse Rate [Right Finger] 49 L Pulse Rate from SpO2 Sensor 52 L Pulse Rhythm Pulse Rhythm [Right Finger] Regular Pulse Strength Pulse Strength [Right Finger] Normal Respiratory Rate 17 18 Respiratory Effort / Characteristics Non-Labored Spontaneous Respiratory Depth Normal Respiratory Pattern Regular Blood Pressure Blood Pressure [Right Arm] 155/88 H Blood Pressure Mean Blood Pressure Mean [Right Arm] 110 Blood Pressure Position Blood Pressure Position [Right Arm] Lying Pulse Oximetry 95 96 Oxygen Delivery Method Room Air Sepsis Recent Fever Within 48 Hours Sepsis New/Unexplained Change in Mental Status Sepsis Action Taken by Nursing Laboratory Data 08/18/24 23:35 08/18/24 23:35 Lab Results 08/18/24 Range/Units 23:35 WBC 9.60 (4.8-10.8) K/ul RBC 5.22 (4.70-6.10) M/uL Hgb 16.0 (14.0-18.0) g/dl Hct 45.7 (42.0-52.0) % MCV 87.5 (80.0-100.0) fL MCH 30.7 (25.0-34.0) pg MCHC 35.0 (32.0-36.0) g/dL RDW Std Deviation 40.3 (36.4-46.3) fL RDW Coeff of Augusto 12.6 (11.5-14.5) % Plt Count 188 (130-400) K/uL MPV 10.2 (9.4-12.4) fL Neutrophils % (Manual) 35 % Lymphocytes % (Manual) 26 % Monocytes % (Manual) 7 % Eosinophils % (Manual) 3 % Basophils % (Manual) 2 % Neutrophils # (Manual) 3.36 (1.40-6.50) K/uL Total Absolute Neuts 3.36 (1.4-6.5) K/uL Lymphocytes # (Manual) 2.50 (1.2-3.4) K/uL Total Abs Lymphocytes 5.09 H (1.2-3.4) K/uL Monocytes # (Manual) 0.67 H (0.11-0.59) K/uL Eosinophils # (Manual) 0.29 (0-0.50) K/uL Basophils # (Manual) 0.19 (0-0.2) K/uL Large Granular Lymphs 27 % # Lrg Granular Lymphs 2.59 K/uL Polychromasia 1+ Sodium 136 (136-145) mmol/L Potassium 4.1 (3.5-5.1) mmol/L Chloride 98 (98-107) mmol/L Carbon Dioxide 28 (21-32) mmol/L Anion Gap 10 (3-11) BUN 18 (6-23) mg/dl Creatinine 0.91 (0.6-1.4) mg/dl Est Cr Clr Drug Dosing 82.9 ml/min eGFR 89.55 BUN/Creatinine Ratio 19.8 (10-20) Glucose 96 (70-99(Fasting)) mg/dl Calcium 10.3 (8.6-10.3) mg/dl Total Bilirubin 0.8 (0.2-1.0) mg/dl AST 35 (13-39) U/L ALT 31 (7-52) U/L Alkaline Phosphatase 96 (34-104) U/L Troponin I High Sens 6.4 (0-20) pg/ml Total Protein 7.8 (6.0-8.3) gm/dl Albumin 4.5 (3.4-5.0) gm/dl Globulin 3.3 (2.5-4.0) gm/dl Albumin/Globulin Ratio 1.4 (0.9-2) Lipase 31 (11-82) U/L Administered Medications Discontinued Medications Ioversol (Optiray 320 125ml) 119 ml IV ONCE ONE Stop: 08/19/24 00:37 Last Admin: 08/19/24 00:36 Dose: 119 ml Documented By: SASHA Nitroglycerin (Nitroglycerin 2% Ointment 30gm Tube) 0.5 inch EXT NOW STA Stop: 08/18/24 23:51 Last Admin: 08/19/24 00:06 Dose: 0.5 inch Documented By: PAG Imaging Data Radiologist's Impression: Chest X-Ray 08/18/24 23:35 EXAM: XR chest 1V portable CLINICAL HISTORY: Chest pain, nonspecific. TECHNIQUE: An X-ray image of the chest is obtained in AP projection. COMPARISON: 09/03/[address] 08/18/2024 23:30:30 ANATOMIC PATHOLOGY ASSISTANT was reviewed. FINDINGS: Pulmonary Parenchyma: Chest leads are identified. Prominent vessels are seen in both hilar region No evidence of consolidation, collapse, or focal opacities. No pulmonary nodules are identified. No evidence of pleural effusion or pleural thickening. Left hemidiaphragm is elevated Heart and Mediastinum: Heart size and shape are normal. No mediastinal widening or masses. No hilar or mediastinal lymphadenopathy. Bony Thorax: Bony thorax appears intact without fractures or deformities. Soft Tissues: Soft tissues overlying the chest wall are unremarkable. IMPRESSION: 1. No evidence of consolidation/collapse. 2. No pleural effusion identified bilaterally. 3. Redemonstration of prominent vessels in both perihilar region likely vascular congestion showing mild interval progression since last examination. 4. Redemonstration of elevated left hemidiaphragm with no significant change since prior x-ray and CT, raising the suspicion of eventration. 5. Otherwise no significant interval change seen. Electronically signed by Brock Morin 08-19-2024 01:31 AM Chest CTA 08/18/24 23:50 EXAM: CT angio chest dissec wo/w con CLINICAL HISTORY: chest pain, severe HTN TECHNIQUE: Contiguous axial images were obtained from the neck base through the upper abdomen following intravenous administration of iodinated contrast material. Angiographic images were processed, 3D MIP images were acquired for interpretation. If IV contrast material had not been administered, the likelihood of detecting abnormalities relevant to the patient's condition would have been substantially decreased. Coronal and sagittal 3-D MIPs were likewise performed and indicated to increase the sensitivity of detectin diffuse clinically relevant pathology. CT scan was performed according to ALARA (as low as reasonable achievable). COMPARISON: None. FINDINGS: Mild dilatation of pulmonary trunk ,bilateral main pulmonary artery up to subsegmental level with mild tortuosity - suggest possibility of pulmonary arterial hypertension Multiple atelectatic bands are noted involving bilateral lower lobes. Few tiny calcified granuloma is noted involving bilateral lower lobes. Adequate contrast bolus without evidence of pulmonary embolism. The central airways are patent. Rest of lungs are clear. No pleural effusion. The heart, aorta, and pulmonary arteries are of normal size and configuration. There are no appreciable coronary artery and aortic atherosclerotic calcifications. No pericardial effusion is identified. The thyroid is unremarkable. No mediastinal, hilar, or axillary lymphadenopathy is noted. No suspicious lytic or sclerotic osseous lesions are identified. IMPRESSION: 1. Mild dilatation of pulmonary trunk ,bilateral main pulmonary artery up to subsegmental level with mild tortuosity - suggest possibility of pulmonary arterial hypertension 2. Multiple atelectatic bands are noted involving bilateral lower lobes. 3. Few tiny calcified granuloma is noted involving bilateral lower lobes. 4. No evidence of pulmonary embolism Electronically signed by Ciro Maldonado 08-19-2024 01:46 AM Discharge Plan Visit Data Chief Complaint: Cardiac Assessment Stated Complaint: CARDIAC ASSESSMENT ED Provider: Satnam Almonte Discharge Problem: Chest pain, Severe hypertension Patient Disposition: Home - Self-Care Condition: Good Forms Stand Alone Forms: My [facility], Important Visit Information Prescriptions Prescriptions: No Action multivitamin [Multiple Vitamin] Tablet 1 tab PO QAM atorvastatin 80 mg tablet 80 mg PO QAM cetirizine [Zyrtec] 10 mg Tablet 10 mg PO QAM metoprolol succinate 50 mg tablet extended release 24 hr 50 mg PO QAM fluticasone propionate [Flonase Allergy Relief] 50 mcg/actuation [place],Suspension 1 spray INTRANASAL QAM losartan 25 mg tablet 12.5 mg PO QAM Rx Instructions: 1/2 tablet dose albuterol sulfate 90 mcg/actuation HFA aerosol inhaler 2 puff INHALATION Q4 PRN (Reason: Wheezing) fluticasone propion-salmeterol [Advair HFA] 115-21 mcg/actuation HFA aerosol inhaler 2 puff INHALATION AMHS tadalafil 2.5 mg tablet 2.5 mg PO DAILY PRN (Reason: Erectile Dysfunction) aspirin [Aspirin Child] 81 mg Tablet,Chewable 81 mg PO DAILY akxxokgjwst-imk-[id number]-[id number]-Bosw 25 mcg- 937.5 mg Tablet 1 tab PO QPM ascorbic acid (vitamin C) 500 mg Tablet 500 mg PO QPM omega-3 fatty acids 1,250 mg Capsule 1,250 mg PO DAILY Referrals Referrals: Massimo Guzmán DO [Primary Care Provider] -
[2024-08-19 00:03] LABS: Hematocrit (blood only) 45.7 % (42.0-52.0); Hemoglobin 16.0 g/dl (14.0-18.0); Mean Corpuscular Hemoglobin 30.7 pg (25.0-34.0); Mean Corpuscular Volume 87.5 fL (80.0-100.0); Platelet Count 188 K/uL (130-400); RDW Standard Deviation 40.3 fL (36.4-46.3); Red Blood Count 5.22 M/uL (4.70-6.10); White Blood Count 9.60 K/ul (4.8-10.8)
[2024-08-19] MEDS: NITROGLYCERIN 2% OINTMENT 30GM TUBE EXT STA (00:06)
[2024-08-19 00:20] LABS: Alanine Aminotransferase 31.0 U/L (7-52); Albumin Globulin Ratio 1.4 (0.9-2); Alkaline Phosphatase 96.0 U/L (34-104); Anion Gap 10.0 (3-11); Bilirubin,Total 0.8 mg/dl (0.2-1.0); Blood Urea Nitrogen 18.0 mg/dl (6-23); Calcium 10.3 mg/dl (8.6-10.3); Carbon Dioxide 28.0 mmol/L (21-32); Chloride 98.0 mmol/L (98-107); Creatinine Clr Calc Pharmacy 82.9 ml/min; Globulin 3.3 gm/dl (2.5-4.0); Glucose 96.0 mg/dl (70-99(Fasting)); Lipase 31.0 U/L (11-82); Potassium 4.1 mmol/L (3.5-5.1); Sodium 136.0 mmol/L (136-145); Total Protein 7.8 gm/dl (6.0-8.3)
[2024-08-19] MEDS: OPTIRAY 320 125ml IV ONE (00:36)
[2024-08-19 01:14] LABS: ALC (manual) 5.09 K/uL (1.2-3.4); ANC (manual) 3.36 K/uL (1.4-6.5); Large Granular Lymph # (manua 2.59 K/uL; Large Granular Lymph % (manual) 27 %; Polychromasia 1+
--- NOTE | 2024-08-19 01:31 | XRay Report ---
EXAM: XR chest 1V portable CLINICAL HISTORY: Chest pain, nonspecific. TECHNIQUE: An X-ray image of the chest is obtained in AP projection. COMPARISON: 09/03/[address] 08/18/2024 23:30:30 PROVIDER RELATIONS COORDINATOR was reviewed. FINDINGS: Pulmonary Parenchyma: Chest leads are identified. Prominent vessels are seen in both hilar region No evidence of consolidation, collapse, or focal opacities. No pulmonary nodules are identified. No evidence of pleural effusion or pleural thickening. Left hemidiaphragm is elevated Heart and Mediastinum: Heart size and shape are normal. No mediastinal widening or masses. No hilar or mediastinal lymphadenopathy. Bony Thorax: Bony thorax appears intact without fractures or deformities. Soft Tissues: Soft tissues overlying the chest wall are unremarkable. IMPRESSION: 1. No evidence of consolidation/collapse. 2. No pleural effusion identified bilaterally. 3. Redemonstration of prominent vessels in both perihilar region likely vascular congestion showing mild interval progression since last examination. 4. Redemonstration of elevated left hemidiaphragm with no significant change since prior x-ray and CT, raising the suspicion of eventration. 5. Otherwise no significant interval change seen. Electronically signed by Brock Morin 08-19-2024 01:31 AM
--- NOTE | 2024-08-19 01:46 | CT Scan Report ---
EXAM: CT angio chest dissec wo/w con CLINICAL HISTORY: chest pain, severe HTN TECHNIQUE: Contiguous axial images were obtained from the neck base through the upper abdomen following intravenous administration of iodinated contrast material. Angiographic images were processed, 3D MIP images were acquired for interpretation. If IV contrast material had not been administered, the likelihood of detecting abnormalities relevant to the patient's condition would have been substantially decreased. Coronal and sagittal 3-D MIPs were likewise performed and indicated to increase the sensitivity of detectin diffuse clinically relevant pathology. CT scan was performed according to ALARA (as low as reasonable achievable). COMPARISON: None. FINDINGS: Mild dilatation of pulmonary trunk ,bilateral main pulmonary artery up to subsegmental level with mild tortuosity - suggest possibility of pulmonary arterial hypertension Multiple atelectatic bands are noted involving bilateral lower lobes. Few tiny calcified granuloma is noted involving bilateral lower lobes. Adequate contrast bolus without evidence of pulmonary embolism. The central airways are patent. Rest of lungs are clear. No pleural effusion. The heart, aorta, and pulmonary arteries are of normal size and configuration. There are no appreciable coronary artery and aortic atherosclerotic calcifications. No pericardial effusion is identified. The thyroid is unremarkable. No mediastinal, hilar, or axillary lymphadenopathy is noted. No suspicious lytic or sclerotic osseous lesions are identified. IMPRESSION: 1. Mild dilatation of pulmonary trunk ,bilateral main pulmonary artery up to subsegmental level with mild tortuosity - suggest possibility of pulmonary arterial hypertension 2. Multiple atelectatic bands are noted involving bilateral lower lobes. 3. Few tiny calcified granuloma is noted involving bilateral lower lobes. 4. No evidence of pulmonary embolism Electronically signed by Ciro Maldonado 08-19-2024 01:46 AM
--- NOTE | 2024-08-19 04:07 | History & Physical Report ---
Date of Service August 19, 2024 Assessment & Plan (1) Chest pain: Plan: 73-year-old male with past med history significant for dyslipidemia, prediabetes, hypertension, history of CAD, osteoarthritis presents with chest pain. Last night around 10 PM he noticed chest discomfort in the retrosternal region. He thought it was mostly GERD symptoms and drank 2 cups of cold water but the pain did not subside then he took acid reflux medication but it also did not helped. And when he check his blood pressure it was in 200s. At that time the patient took 4 baby aspirin's and came to the hospital. Chest pain lasted for only short period of time. But in the ER his blood pressure was still in 200s. ER placed him on Nitropaste. Currently systolic blood pressure in 120s. Resting comfortably. Has some mild headache. No occasional cough. No fevers. No shortness of breath. No nausea. No sweating. No dizziness. No abdominal pain. Hemodynamics okay. Patient recently was in [place] for vacation and came back on 08/13/24. During the last part of his vacation he took doxycycline for early signs of bronchitis.Says micturates a lot. Chest pain Currently resolved Initial troponin and EKG unremarkable CTA chest okay Will follow serial enzymes and echo N.p.o. Monitor on telemetry Cardial consult in a.m. for further recommendation Hypertensive urgency Continue home metoprolol succinate and losartan Currently on Nitropaste which will be continued Will monitor History of CAD History of ST elevation ID in June 2018 Status post drug-eluting stent to mid LAD On aspirin, statin and beta-torrey Will follow echo History patient with cardiomyopathy EF 35 to 40% June 2018 normalizing in July 2018 Will follow echo Hyperlipidemia On statin History of bronchiectasis History of tobacco use. Quit in 1980 Continue home inhalers Erectile dysfunction On tadalafil But did not take it in the last 10 days DVT prophylaxis SCDs Disposition Telemetry Full code. History of Present Illness Chief Complaint: Chest pain Primary Care Provider: Massimo Guzmán DO 73-year-old male with past med history significant for dyslipidemia, prediabetes, hypertension, history of CAD, osteoarthritis presents with chest pain. Tonight night around 10 PM he noticed chest discomfort in the retrosternal region. He thought it was mostly GERD symptoms and drank 2 cups of cold water but the pain did not subside then he took acid reflux medication but it also did not helped. And when he check his blood pressure it was in 200s. At that time the patient took 4 baby aspirin's and came to the hospital. Chest pain lasted for only short period of time. But in the ER his blood pressure was still in 200s. ER placed him on Nitropaste. Currently systolic blood pressure in 120s. Resting comfortably. Has some mild headache. No occasional cough. No fevers. No shortness of breath. No nausea. No sweating. No dizziness. No abdominal pain. Hemodynamics okay. Patient recently was in [place] for vacation and came back on 08/13/24. During the last part of his vacation he took doxycycline for early signs of bronchitis.Says micturates a lot. Past medical history. As mentioned above Past surgical history. Colonoscopy. Right foot surgery. Nasal surgery. Right repair of rotator cuff. Social history. Quit smoking 1980. Smoked 1 pack a day for 14 years. No alcohol history no drug use. Family history. Sister had cancer. Sister had heart disorder. Mother had ID at age 66. Father had hypertension. Stroke. Allergies Allergy/AdvReac Type Severity Reaction Status Date / Time pollen extracts Allergy Intermediate ITCHY Verified 08/19/24 01:41 EYES, SNEEZING, CONGESTION Home Medications Medication Instructions Recorded Confirmed Type atorvastatin 80 mg tablet 80 mg PO QA 09/03/20 08/19/24 History cetirizine 10 mg tablet (Zyrtec) 10 mg PO QA 09/03/20 08/19/24 History fluticasone propionate 50 1 spray intranasal QA 09/03/20 08/19/24 History mcg/actuation nasal spray,suspension (Flonase Allergy Relief) metoprolol succinate 50 mg 50 mg PO QAM 09/03/20 08/19/24 History tablet,extended release 24 hr multivitamin 1 tab PO QAM 09/03/20 08/19/24 History albuterol sulfate 90 mcg/actuation 2 puff inhalation Q4 PRN Wheezing 08/19/24 08/19/24 History aerosol inhaler ascorbic acid (vitamin C) 500 mg 500 mg PO QPM 08/19/24 08/19/24 History tablet aspirin 81 mg chewable tablet 81 mg PO DAILY 08/19/24 08/19/24 History fluticasone propionate 115 2 puff inhalation AMHS 08/19/24 08/19/24 History mcg-salmeterol 21 mcg/actuation HFA inhaler (Advair HFA) [id number]-vit 1 tab PO QPM 08/19/24 08/19/24 History D3-Boswellia 25 mcg-937.5 mg tablet losartan 25 mg tablet 12.5 mg PO QAM 08/19/24 08/19/24 History omega-3 fatty acids 1,250 mg 1,250 mg PO DAILY 08/19/24 08/19/24 History capsule tadalafil 2.5 mg tablet 2.5 mg PO DAILY PRN Erectile 08/19/24 08/19/24 History Dysfunction Past Med/Surg History Problem List (Updated 08/18/24 @ 23:59 by Satnam Almonte MD) Severe hypertension (Acute) Chest pain (Acute) HTN (hypertension) Allergic rhinitis HLD (hyperlipidemia) Prediabetes ST elevation myocardial infarction (STEMI) (Acute) ACS (acute coronary syndrome) Medical History (Updated 08/18/24 @ 23:59 by Satnam Almonte MD) No significant past medical history Social History Smoking Status: Former smoker Second Hand Exposure: No; Do You Dip or Chew Tobacco: No; Tobacco Cessation Education Requested by Patient: No Hx Alcohol Use: No Hx Substance Use: No Preferred Language: Czech Communication Ability: Effective Religious Education Teacher Required: No Beliefs That Will Affect Care: None Current Living Situation: Spouse Other Information That Helps Us Care for You: No Feels Safe at Home: Yes Safety Concerns: Feels Safe At This Time Assistive Devices: Cane, Glasses and Special Shoe Review of Systems Review of Systems: All systems reviewed & are unremarkable except as noted in HPI & below Physical Exam Physical Exam: General- Not in distress Head- atraumatic Eyes- PERRL. ENT- oropharynx clear Neck- supple, no JVD. Lungs- clear to auscultation mild bibasilar crackles, no wheezing Heart- regular rhythm; no murmur, no gallop. Abdomen- normal bowel sounds, soft, nontender, no distension Extremities- no pretibial edema,. Neuro- alert, oriented PERRL, no facial palsy; no dysarthria; moves extremities Results & Data Results & Data Vital Signs (Past 12 Hours) Vital Signs Temp Pulse Pulse Resp BP BP Pulse Ox 08/19/24 03:03 54 L 24 121/77 92 08/19/24 01:45 52 L 18 96 08/19/24 01:25 49 L 17 155/88 H 95 08/19/24 01:21 52 L 15 99 08/19/24 01:15 52 L 20 97 08/19/24 01:09 155/88 H 08/19/24 01:09 53 L 22 94 08/19/24 00:28 54 L 08/19/24 00:27 156/101 H 08/19/24 00:27 156/101 H 08/19/24 00:27 156/101 H 08/18/24 23:35 56 L 14 96 08/18/24 23:35 57 L 14 156/101 H 97 08/18/24 23:35 08/18/24 23:27 36.7 C 60 18 219/105 H 98 O2 Del Method 08/19/24 03:03 Room Air 08/19/24 01:45 08/19/24 01:25 Room Air 08/19/24 01:21 08/19/24 01:15 08/19/24 01:09 08/19/24 01:09 08/19/24 00:28 08/19/24 00:27 08/19/24 00:27 08/19/24 00:27 08/18/24 23:35 Room Air 08/18/24 23:35 Room Air 08/18/24 23:35 Room Air 08/18/24 23:27 Room Air Diagnostic Findings Laboratory Results WBC 9.60 K/ul (4.8-10.8) 08/18/24 23:35 RBC 5.22 M/uL (4.70-6.10) 08/18/24 23:35 Hgb 16.0 g/dl (14.0-18.0) 08/18/24 23:35 Hct 45.7 % (42.0-52.0) 08/18/24 23:35 MCV 87.5 fL (80.0-100.0) 08/18/24 23:35 MCH 30.7 pg (25.0-34.0) 08/18/24 23:35 MCHC 35.0 g/dL (32.0-36.0) 08/18/24 23:35 RDW Std Deviation 40.3 fL (36.4-46.3) 08/18/24 23:35 RDW Coeff of Augusto 12.6 % (11.5-14.5) 08/18/24 23:35 Plt Count 188 K/uL (130-400) 08/18/24 23:35 MPV 10.2 fL (9.4-12.4) 08/18/24 23:35 Neutrophils % (Manual) 35 % 08/18/24 23:35 Lymphocytes % (Manual) 26 % 08/18/24 23:35 Monocytes % (Manual) 7 % 08/18/24 23:35 Eosinophils % (Manual) 3 % 08/18/24 23:35 Basophils % (Manual) 2 % 08/18/24 23:35 Neutrophils # (Manual) 3.36 K/uL (1.40-6.50) 08/18/24 23:35 Total Absolute Neuts 3.36 K/uL (1.4-6.5) 08/18/24 23:35 Lymphocytes # (Manual) 2.50 K/uL (1.2-3.4) 08/18/24 23:35 Total Abs Lymphocytes 5.09 K/uL (1.2-3.4) H 08/18/24 23:35 Monocytes # (Manual) 0.67 K/uL (0.11-0.59) H 08/18/24 23:35 Eosinophils # (Manual) 0.29 K/uL (0-0.50) 08/18/24 23:35 Basophils # (Manual) 0.19 K/uL (0-0.2) 08/18/24 23:35 Large Granular Lymphs 27 % 08/18/24 23:35 # Lrg Granular Lymphs 2.59 K/uL 08/18/24 23:35 Polychromasia 1+ 08/18/24 23:35 Sodium 136 mmol/L (136-145) 08/18/24 23:35 Potassium 4.1 mmol/L (3.5-5.1) 08/18/24 23:35 Chloride 98 mmol/L (98-107) 08/18/24 23:35 Carbon Dioxide 28 mmol/L (21-32) 08/18/24 23:35 Anion Gap 10 (3-11) 08/18/24 23:35 BUN 18 mg/dl (6-23) 08/18/24 23:35 Creatinine 0.91 mg/dl (0.6-1.4) 08/18/24 23:35 Est Cr Clr Drug Dosing 82.9 ml/min 08/18/24 23:35 eGFR 89.55 08/18/24 23:35 BUN/Creatinine Ratio 19.8 (10-20) 08/18/24 23:35 Glucose 96 mg/dl (70-99(Fasting)) 08/18/24 23:35 Calcium 10.3 mg/dl (8.6-10.3) 08/18/24 23:35 Total Bilirubin 0.8 mg/dl (0.2-1.0) 08/18/24 23:35 AST 35 U/L (13-39) 08/18/24 23:35 ALT 31 U/L (7-52) 08/18/24 23:35 Alkaline Phosphatase 96 U/L (34-104) 08/18/24 23:35 Troponin I High Sens 6.4 pg/ml (0-20) 08/18/24 23:35 Total Protein 7.8 gm/dl (6.0-8.3) 08/18/24 23:35 Albumin 4.5 gm/dl (3.4-5.0) 08/18/24 23:35 Globulin 3.3 gm/dl (2.5-4.0) 08/18/24 23:35 Albumin/Globulin Ratio 1.4 (0.9-2) 08/18/24 23:35 Lipase 31 U/L (11-82) 08/18/24 23:35 Impressions Chest X-Ray 08/18/24 23:35 EXAM: XR chest 1V portable CLINICAL HISTORY: Chest pain, nonspecific. TECHNIQUE: An X-ray image of the chest is obtained in AP projection. COMPARISON: 09/03/[address] 08/18/2024 23:30:30 INTERIOR DESIGN PROFESSOR was reviewed. FINDINGS: Pulmonary Parenchyma: Chest leads are identified. Prominent vessels are seen in both hilar region No evidence of consolidation, collapse, or focal opacities. No pulmonary nodules are identified. No evidence of pleural effusion or pleural thickening. Left hemidiaphragm is elevated Heart and Mediastinum: Heart size and shape are normal. No mediastinal widening or masses. No hilar or mediastinal lymphadenopathy. Bony Thorax: Bony thorax appears intact without fractures or deformities. Soft Tissues: Soft tissues overlying the chest wall are unremarkable. IMPRESSION: 1. No evidence of consolidation/collapse. 2. No pleural effusion identified bilaterally. 3. Redemonstration of prominent vessels in both perihilar region likely vascular congestion showing mild interval progression since last examination. 4. Redemonstration of elevated left hemidiaphragm with no significant change since prior x-ray and CT, raising the suspicion of eventration. 5. Otherwise no significant interval change seen. Electronically signed by Brock Morin 08-19-2024 01:31 AM Chest CTA 08/18/24 23:50 EXAM: CT angio chest dissec wo/w con CLINICAL HISTORY: chest pain, severe HTN TECHNIQUE: Contiguous axial images were obtained from the neck base through the upper abdomen following intravenous administration of iodinated contrast material. Angiographic images were processed, 3D MIP images were acquired for interpretation. If IV contrast material had not been administered, the likelihood of detecting abnormalities relevant to the patient's condition would have been substantially decreased. Coronal and sagittal 3-D MIPs were likewise performed and indicated to increase the sensitivity of detectin diffuse clinically relevant pathology. CT scan was performed according to ALARA (as low as reasonable achievable). COMPARISON: None. FINDINGS: Mild dilatation of pulmonary trunk ,bilateral main pulmonary artery up to subsegmental level with mild tortuosity - suggest possibility of pulmonary arterial hypertension Multiple atelectatic bands are noted involving bilateral lower lobes. Few tiny calcified granuloma is noted involving bilateral lower lobes. Adequate contrast bolus without evidence of pulmonary embolism. The central airways are patent. Rest of lungs are clear. No pleural effusion. The heart, aorta, and pulmonary arteries are of normal size and configuration. There are no appreciable coronary artery and aortic atherosclerotic calcifications. No pericardial effusion is identified. The thyroid is unremarkable. No mediastinal, hilar, or axillary lymphadenopathy is noted. No suspicious lytic or sclerotic osseous lesions are identified. IMPRESSION: 1. Mild dilatation of pulmonary trunk ,bilateral main pulmonary artery up to subsegmental level with mild tortuosity - suggest possibility of pulmonary arterial hypertension 2. Multiple atelectatic bands are noted involving bilateral lower lobes. 3. Few tiny calcified granuloma is noted involving bilateral lower lobes. 4. No evidence of pulmonary embolism Electronically signed by Ciro Maldonado 08-19-2024 01:46 AM ECG Additional Comments: ECG. Sinus bradycardia rate 59. Minimal voltage criteria for LVH. No significant change was found. QTc 403 Code Status & VTE Plan VTE Prophylaxis Plan VTE Prophylaxis will be ordered: Yes
[2024-08-19] MEDS ORDERED: POLYETHYLENE (MIRALAX) 17 GM PACK PO PRN (05:18)
[2024-08-19] MEDS ORDERED: ALBUTEROL HFA 8 GM INHALER INH PRN (05:18)
[2024-08-19] MEDS ORDERED: ACETAMINOPHEN 325 MG TAB PO PRN (05:18)
[2024-08-19] MEDS ORDERED: NITROGLYCERIN SL 0.4 MG/TAB TAB SL PRN (05:18)
[2024-08-19] MEDS: NITROGLYCERIN 2% OINTMENT 30GM TUBE EXT SCH (06:03)
[2024-08-19 06:55] LABS: Hematocrit (blood only) 41.0 % (42.0-52.0); Hemoglobin 14.5 g/dl (14.0-18.0); Immature Granulocytes # (auto) 0.03 K/uL (0.01-0.20); Immature Granulocytes % (auto) 0.4 %; Mean Corpuscular Hemoglobin 31.0 pg (25.0-34.0); Mean Corpuscular Volume 87.6 fL (80.0-100.0); Platelet Count 158 K/uL (130-400); RDW Standard Deviation 40.0 fL (36.4-46.3); Red Blood Count 4.68 M/uL (4.70-6.10); White Blood Count 8.05 K/ul (4.8-10.8)
[2024-08-19 07:12] LABS: Anion Gap 7.0 (3-11); Blood Urea Nitrogen 16.0 mg/dl (6-23); Calcium 9.6 mg/dl (8.6-10.3); Carbon Dioxide 27.0 mmol/L (21-32); Chloride 102.0 mmol/L (98-107); Creatinine Clr Calc Pharmacy 96.7 ml/min; Glucose 114.0 mg/dl (70-99(Fasting)); Magnesium 2.0 mg/dl (1.7-2.4); Potassium 4.1 mmol/L (3.5-5.1); Sodium 136.0 mmol/L (136-145)
[2024-08-19] MEDS: METOPROLOL SUCC 50MG EXT REL TAB PO SCH (07:54)
[2024-08-19] MEDS: LOSARTAN POTASSIUM 25 MG TAB PO SCH (07:54)
[2024-08-19] MEDS ORDERED: CETIRIZINE HCL 10 MG TABLET PO SCH (09:00)
[2024-08-19 09:12] LABS: Cholesterol 110.0 mg/dl (0-200); HDL Cholesterol 37.0 mg/dl; Triglycerides 74.0 mg/dl (0-150)
[2024-08-19] MEDS: FLUTICASONE PROPIONATE NA SPR 16 GM BTL SCH (09:15)
[2024-08-19] MEDS: FLUTICASONE/VILANTEROL 100/25MCG 14 PUFFS/INHALER INH SCH (09:16)
[2024-08-19] MEDS: ASPIRIN 81 MG ECTAB PO SCH (09:17)
[2024-08-19] MEDS: ATORVASTATIN 40 MG TAB PO SCH (09:17)
[2024-08-19] MEDS: MULTIVITAMIN TAB PO SCH (09:18)
--- NOTE | 2024-08-19 09:32 | Cardiology Consultation ---
Date of Consultation August 19, 2024 Assessment & Plan (1) Chest pain: * EKG x 1, high sensitive troponin x 2 within normal limits and reassuring * Patient states symptoms are not reminiscent of the angina symptoms he remembers from his 2019 anterior STEMI * He does however have a history of coronary heart disease and has known history of residual nonobstructive CAD. * Patient unable to ambulate on the treadmill due to chronic ankle instability. Recommend proceeding with a dobutamine stress echocardiogram. Blood pressure improved this morning and I think he will do well with the dobutamine. * Continue aspirin 81 mg daily (2) Severe hypertension: * Blood pressure had been uncharacteristically high for him last evening, Improved this morning. * Discontinue topical nitroglycerin, administer dose of a.m. losartan 12.5 mg which is due and hold morning metoprolol. * Future considerations include increasing his losartan dose from 12.5 mg daily to 25 mg daily. (3) HLD (hyperlipidemia): * LDL cholesterol has been optimally controlled. Repeat measurement this morning 58 mg/dL. * Continue atorvastatin 80 mg daily History of Present Illness Attending Physician: Juan R Reina MD History of Present Illness Mr Wade is a 73 year old male seen in cardiology consultation per the request of Dr Phelps for the evaluation of Chest discomfort and hypertensive urgency. The patient describes feeling like he was in his normal state of health yesterday. At about 330 he had a piece of pizza and a bread stick for a late lunch. A few hours later he had a fresh cucumber from his garden. He was reading catching up on current events and 10 PM he had abrupt onset of a discomfort in the midline chest that is typical of the symptoms that he typically perceives as being gastroesophageal reflux. He drank some cold water and took antacids. When this did not seem to relieve the discomfort after a minute he took 4 baby aspirin and took his blood pressure. His systolic blood pressure was over 200 mmHg which is unusual for him as he checks his blood pressure regularly at home. He ultimately presented to the emergency department. Symptoms had resolved by the time he arrived here. Blood pressure however had initially remained high but improved after receiving topical nitroglycerin. At baseline he exercises regularly. He has a chronic limitation with his right ankle for which he wears a brace and he exercises utilizing a recumbent bike and free weights. In July he had been on an extended vacation in [place] and had simona rasheed off his usual exercise routine but notes no unusual symptoms with the exception of having his rescue dose of a 10-day course of doxycycline due to concerns of developing a bronchitis the symptoms which have since resolved. The patient does not believe that the symptoms that prompted him to come to the hospital last evening were reminiscent of his myocardial infarction event in 2019. Cardiac History: 1.ASCVD. 1.Status post June 12, [address] segment elevation myocardial infarction. 2.Specific coronary angiography revealed a large caliber left main that was free of significant disease, large caliber left anterior descending with the 90+% mid vessel lesion, 30% diffuse late to mid to distal disease common 3 moderate caliber diagonal branches with mild disease. The left circumflex was noted to have a 50 to 60% ostial stenosis, mid segment luminal irregularities, and a large 2nd obtuse marginal branch without significant disease. The right coronary artery was described as dominant, moderate caliber vessel, with a 50% proximal lesion, mild early to mid segment disease, distal luminal irregularities, and a tortuous PDA without significant disease. LVEDP was 1. 3.Status post June 12, 2018 PCI of the mid LAD with a drug-eluting stent. 2.Ischemic cardiomyopathy. EF 35-40% in June 2018, normalizing via July 31, 2018 TTE. 3.Hypertension 4.Dyslipidemia 5.History of tobacco abuse, Quit smoking in 1980 having smoked for 14 to 15 years before that 6.Bronchiectasis diagnosed in 2022 7. 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 He has and lives with his spouse, Trupti. He has 2 grandchildren FAMILY HISTORY Notable for coronary heart disease Allergies Allergy/AdvReac Type Severity Reaction Status Date / Time pollen extracts Allergy Intermediate ITCHY Verified 08/19/24 01:41 EYES, SNEEZING, CONGESTION Home Medications Medication Instructions Recorded Confirmed Type atorvastatin 80 mg tablet 80 mg PO QA 09/03/20 08/19/24 History cetirizine 10 mg tablet (Zyrtec) 10 mg PO QA 09/03/20 08/19/24 History fluticasone propionate 50 1 spray intranasal [facility] 09/03/20 08/19/24 History mcg/actuation nasal spray,suspension (Flonase Allergy Relief) metoprolol succinate 50 mg 50 mg PO QAM 09/03/20 08/19/24 History tablet,extended release 24 hr multivitamin 1 tab PO QAM 09/03/20 08/19/24 History albuterol sulfate 90 mcg/actuation 2 puff inhalation Q4 PRN Wheezing 08/19/24 08/19/24 History aerosol inhaler ascorbic acid (vitamin C) 500 mg 500 mg PO QPM 08/19/24 08/19/24 History tablet aspirin 81 mg chewable tablet 81 mg PO DAILY 08/19/24 08/19/24 History fluticasone propionate 115 2 puff inhalation [facility]HS 08/19/24 08/19/24 History mcg-salmeterol 21 mcg/actuation HFA inhaler (Advair HFA) [id number]-xfh-gflkeprfirn-vit 1 tab PO QPM 08/19/24 08/19/24 History D3-Boswellia 25 mcg-937.5 mg tablet losartan 25 mg tablet 12.5 mg PO QAM 08/19/24 08/19/24 History omega-3 fatty acids 1,250 mg 1,250 mg PO DAILY 08/19/24 08/19/24 History capsule tadalafil 2.5 mg tablet 2.5 mg PO DAILY PRN Erectile 08/19/24 08/19/24 History Dysfunction Patient History Medical History (Updated 08/19/24 @ 10:49 by Guillermo Powers, DO) No significant past medical history Social History Smoking Status: Former smoker Second Hand Exposure: No; Do You Dip or Chew Tobacco: No; Tobacco Cessation Education Requested by Patient: No Hx Alcohol Use: No Hx Substance Use: No Preferred Language: Vietnamese Communication Ability: Effective Mental Health Counselor Required: No Beliefs That Will Affect Care: None Current Living Situation: Spouse Other Information That Helps Us Care for You: No Feels Safe at Home: Yes Safety Concerns: Feels Safe At This Time Assistive Devices: Cane, Glasses and Special Shoe Review of Systems Review of Systems: All systems reviewed & are unremarkable except as noted in HPI & below Physical Exam Constitutional: WD/WN, vitals as above + not well developed, + not well nourished and no acute distress Eyes: PERRL, conjunctivae normal, anicteric sclerae Neck: trachea midline Respiratory: normal respiratory effort, lungs clear to auscultation Cardiovascular: RRR, no murmur, no edema Heart Sounds: + murmur Vessels: no JVD Gastrointestinal (Abdomen): normal bowel sounds, soft, nontender, no hepatosplenomegaly Neurologic: PERRL, EOMI, accommodation nl, no face palsy, no dysarthria Psychiatric: A+Ox3, euthymic affect Results & Data Laboratory Results Cardiac Enzymes 08/18/24 08/19/24 Range/Units 23:35 06:35 AST 35 (13-39) U/L Troponin I High Sens 6.4 10.0 (0-20) pg/ml Lipids 08/19/24 Range/Units 06:35 Triglycerides 74 (0-150) mg/dl Cholesterol 110 (0-200) mg/dl HDL Cholesterol 37 mg/dl Cholesterol/HDL Ratio 3.0 (0-5) CBC 08/18/24 08/19/24 Range/Units 23:35 06:35 WBC 9.60 8.05 (4.8-10.8) K/ul RBC 5.22 4.68 L (4.70-6.10) M/uL Hgb 16.0 14.5 (14.0-18.0) g/dl Hct 45.7 41.0 L (42.0-52.0) % Plt Count 188 158 (130-400) K/uL Neut # (Auto) 3.91 (1.40-6.50) K/uL Lymph # (Auto) 2.94 (1.20-3.40) K/uL [place] # (Auto) 0.88 H (0.11-0.59) K/uL Eos # (Auto) 0.23 (0.00-0.50) K/uL Baso # (Auto) 0.06 (0.00-0.20) K/uL Comprehensive Metabolic Panel 08/18/24 08/19/24 Range/Units 23:35 06:35 Sodium 136 136 (136-145) mmol/L Potassium 4.1 4.1 (3.5-5.1) mmol/L Chloride 98 102 (98-107) mmol/L Carbon Dioxide 28 27 (21-32) mmol/L BUN 18 16 (6-23) mg/dl Creatinine 0.91 0.78 (0.6-1.4) mg/dl Glucose 96 114 H (70-99(Fasting)) mg/dl Calcium 10.3 9.6 (8.6-10.3) mg/dl AST 35 (13-39) U/L ALT 31 (7-52) U/L Alkaline Phosphatase 96 (34-104) U/L Total Protein 7.8 (6.0-8.3) gm/dl Albumin 4.5 (3.4-5.0) gm/dl Intake and Output 08/18/24 08/19/24 08/19/24 22:59 06:59 14:59 Output Total 400 / 400 Balance -400 / -400 Output: Urine 400 / 400 Other: Weight 94.6 kg Weight Measurement Method Built in [facility] 03/17/24 11:30, Outpatient lipid panel. Triglycerides: 104 Cholesterol: 108 Non-HDL Cholesterol: 70 HDL Cholesterol: 38 (L) LDL Cholesterol: 49 Diagnostic Findings Summary of outpatient transthoracic echocardiogram performed at [facility] on 07/21/2024: The qualitative LV ejection fraction is 55-59% (normal). The left ventricular diastolic function is mildly abnormal (grade I). The aortic valve has three leaflets. The aortic valve is mildly calcified. There is aortic valve sclerosis without stenosis. Compared to prior study of 03/29/2022, there is no significant change. EKG performed 08/18/2024 at 2335 and interpreted [place]: Sinus bradycardia 59 bpm, normal ST segments. PG Care Time/CCT Total # of Minutes Spent Total Time Spent with Patient: Total time spent is greater than 50% in coordination of care (as documented) at patient's floor/unit and/or counseling patient: Coding Level of Care Code 84791 IN/OBS CONSULT LVL 4,60M Diagnoses Chest pain, unspecified type R07.9 Chest pain type: unspecified Severe hypertension I10 HLD (hyperlipidemia) E78.5 (1) Chest pain Chest pain type: unspecified Qualified Code(s): R07.9 - Chest pain, unspecified
[2024-08-19 10:09] LABS: Hemoglobin A1C 6.2 % (4.5-5.6)
[2024-08-19 10:21] VITALS: RESP 20; TEMP 98.2; O2SAT 98
[2024-08-19] MEDS ORDERED: ATROPINE SULFATE 0.1 MG/ML 10ML SYR IV ONE (11:27)
[2024-08-19] MEDS ORDERED: DOBUTamine HCL 12.5 MG/ML 20 ML VIAL IV ONE (11:27)
[2024-08-19] MEDS ORDERED: METOPROLOL TARTRATE 1 MG/ML VIAL IV ONE (11:27)
--- NOTE | 2024-08-19 12:06 | Communication Note ---
Date of Service: August 19, 2024 Dobutamine stress echocardiogram is negative for ischemia. Recommend discharge to home on his prior to hospital medications including aspirin 81 mg daily, l osartan 12.5 mg daily, metoprolol succinate 50 mg daily, atorvastatin 80 mg daily Eze Powers DO
[2024-08-19 14:35] VITALS: BP 144/72; PULSE 77
--- NOTE | 2024-08-19 15:25 | Discharge Summary ---
Discharge Summary Date of Service August 19, 2024 Principal Dx & Hospital Course #1 = Principal Diagnosis (1) Chest pain: 73-year-old male with past med history significant for dyslipidemia, prediabetes, hypertension, history of CAD, osteoarthritis presents with chest pain. Last night around 10 PM he noticed chest discomfort in the retrosternal region. He thought it was mostly GERD symptoms and drank 2 cups of cold water but the pain did not subside then he took acid reflux medication but it also did not helped. And when he check his blood pressure it was in 200s. At that time the patient took 4 baby aspirin's and came to the hospital. Chest pain lasted for only short period of time. But in the ER his blood pressure was still in 200s. ER placed him on Nitropaste. Currently systolic blood pressure in 120s. Resting comfortably. Has some mild headache. No occasional cough. No fevers. No shortness of breath. No nausea. No sweating. No dizziness. No abdominal pain. Hemodynamics okay. Patient recently was in [place] for vacation and came back on 08/13/24. During the last part of his vacation he took doxycycline for early signs of bronchitis.Says micturates a lot. Chest pain Currently resolved Initial troponin and EKG unremarkable CTA chest okay Will follow serial enzymes and echo N.p.o. Monitor on telemetry Cardial consult in a.m. for further recommendation Hypertensive urgency Continue home metoprolol succinate and losartan Currently on Nitropaste which will be continued Will monitor History of CAD History of ST elevation IA in June 2018 Status post drug-eluting stent to mid LAD On aspirin, statin and beta-torrey Will follow echo History patient with cardiomyopathy EF 35 to 40% June 2018 normalizing in July 2018 Will follow echo Hyperlipidemia On statin History of bronchiectasis History of tobacco use. Quit in 1980 Continue home inhalers Erectile dysfunction On tadalafil But did not take it in the last 10 days DVT prophylaxis SCDs Disposition Telemetry Full code. Notes For Next Care Provider 73-year-old male with past med history significant for dyslipidemia, prediabetes, hypertension, history of CAD, osteoarthritis presents with chest pain. In the ED, admitted to medicine for chest pain rule out. Unremarkable troponins. Cardiology consulted, recommended dobutamine stress that was unremarkable. On 08/19/2024 patient medically stable for discharge. To do: [ ] f/u with cardiology [ ] may need GI outpatient consult for esophageal spasm Medication Changes From Visit -see below Admission HPI Per Admitting Provider 73-year-old male with past med history significant for dyslipidemia, prediabetes, hypertension, history of CAD, osteoarthritis presents with chest pain. Tonight night around 10 PM he noticed chest discomfort in the retrosternal region. He thought it was mostly GERD symptoms and drank 2 cups of cold water but the pain did not subside then he took acid reflux medication but it also did not helped. And when he check his blood pressure it was in 200s. At that time the patient took 4 baby aspirin's and came to the hospital. Chest pain lasted for only short period of time. But in the ER his blood pressure was still in 200s. ER placed him on Nitropaste. Currently systolic blood pressure in 120s. Resting comfortably. Has some mild headache. No occasional cough. No fevers. No shortness of breath. No nausea. No sweating. No dizziness. No abdominal pain. Hemodynamics okay. Patient recently was in [place] for vacation and came back on 08/13/24. During the last part of his vacation he took doxycycline for early signs of bronchitis.Says micturates a lot. Past medical history. As mentioned above Past surgical history. Colonoscopy. Right foot surgery. Nasal surgery. Right repair of rotator cuff. Social history. Quit smoking 1980. Smoked 1 pack a day for 14 years. No alcohol history no drug use. Family history. Sister had cancer. Sister had heart disorder. Mother had IA at age 66. Father had hypertension. Stroke. Updated Medication List Medication Instructions Recorded Confirmed Type atorvastatin 80 mg tablet 80 mg PO QAM 09/03/20 08/19/24 History cetirizine 10 mg tablet (Zyrtec) 10 mg PO QAM 09/03/20 08/19/24 History fluticasone propionate 50 1 spray intranasal QAM 09/03/20 08/19/24 History mcg/actuation nasal spray,suspension (Flonase Allergy Relief) metoprolol succinate 50 mg 50 mg PO QAM 09/03/20 08/19/24 History tablet,extended release 24 hr multivitamin 1 tab PO QAM 09/03/20 08/19/24 History albuterol sulfate 90 mcg/actuation 2 puff inhalation Q4 PRN Wheezing 08/19/24 08/19/24 History aerosol inhaler aspirin 81 mg chewable tablet 81 mg PO DAILY 08/19/24 08/19/24 History fluticasone propionate 115 2 puff inhalation AMHS 08/19/24 08/19/24 History mcg-salmeterol 21 mcg/actuation HFA inhaler (Advair HFA) losartan 25 mg tablet 12.5 mg PO QAM 08/19/24 08/19/24 History omega-3 fatty acids 1,250 mg 1,250 mg PO DAILY 08/19/24 08/19/24 History capsule ondansetron 4 mg disintegrating 4 mg PO Q8H PRN nausea and 08/19/24 Rx tablet vomiting 4 days #14 tabs pantoprazole 40 mg tablet,delayed 40 mg PO QAM 4 weeks #28 tabs 08/19/24 Rx release (Protonix) tadalafil 2.5 mg tablet 2.5 mg PO DAILY PRN Erectile 08/19/24 08/19/24 History Dysfunction Hospital Stay Data Consultations 08/19/24 01:03 ED Decision to Admit Stat Diagnostic Imagining Performed 08/18/24 23:50 CT angio chest dissec wo/w con Stat Pending Results Patient Have Any Pending Studies at Discharge: No Discharge Instructions Given to Patient (Per Discharging Provider) 1. Please follow up with cardiology and PCP. 2. Please stay hydrated! 3. Take medications as prescribed. Total Time Total Time Spent Total Time Spent (In Minutes): I spent a total of 35 minutes in direct patient care, including [id number] time with the patient and/or family, reviewing medical records, ordering and reviewing diagnostic tests, and coordinating care with other healthcare providers. This time includes: history taking, physical examination, medical decision making, counseling, ECG interpretation, imaging interpretation, lab interpretation, orders, and education, excluding time spent in the performance of separately billed services.
--- NOTE | 2024-08-19 17:49 | Electrocardiogram Report ---
Test Reason : Blood Pressure : */* mmHG Vent. Rate : 59 BPM Atrial Rate : 59 BPM P-R Int : 180 ms QRS Dur : 82 ms QT Int : 408 ms P-R-T Axes : 18 -16 26 degrees QTcB Int : 403 ms Sinus bradycardia Minimal voltage criteria for LVH, may be normal variant Borderline ECG When compared with ECG of 03-Sep-2020 02:27, No significant change was found Confirmed by Gomez Vasquez ([id number]) on 08/19/2024 5:48:48 PM Referred By: REFERRED SELF Confirmed By: Gomez Vasquez
[2024-08-19] MEDS ORDERED: ASCORBIC ACID 500 MG TAB PO SCH (21:00)
[2024-08-19] MEDS ORDERED: [UNRECOGNIZED DRUG - OTHER] PO SCH (21:00)
== END 2024-08-19 14:33 | disposition home or self-care (01) | DRG 313 ==
LOC: ED 23:24 → SUATTDRO 08-19 04:04 → EDINP 08-19 04:04